=== PATIENT | male | born 1985 | race Caucasian/White ===

== ENCOUNTER 2016-11-23 12:25 | Emergency (ER) | payer BC ==
[~2016-11-23] VITALS: Ht 198.1 cm; Wt 147.0 kg
[2016-11-23 12:36] VITALS: TEMP 37.5; Ht 198.1 cm; Wt 147.0 kg
--- NOTE | 2016-11-23 13:05 | DIAGNOSTIC IMAGING REPORT ---
SINGLE VIEW CHEST CLINICAL HISTORY: Hemoptysis. FINDINGS: An AP, portable, upright chest radiograph is obtained. No prior studies are available for comparison at the time of dictation. The examination is degraded by portable technique and patient rotation. The cardiomediastinal silhouette is unremarkable. The lungs and pleural spaces are clear. No pneumothorax is seen. The bony thorax is grossly intact. IMPRESSION: No acute cardiopulmonary abnormality. Electronically signed by: Jonas Gonzalez M.D. 11/23/2016 1:04 PM Dictated Date/Time: 11/23/2016 1:03 PM
[2016-11-23] MEDS ORDERED: IBUP-1050 PO (13:10)
[2016-11-23] MEDS ORDERED: ACET-1311 PO (13:10)
--- NOTE | 2016-11-23 13:26 | EMERGENCY ROOM VISIT NOTE ---
History Report prepared by Scribe: Maday Orellana Under the Supervision of: Dr. Ted Burns D.O. First contact with patient: 12:38 Chief Complaint: COUGH Stated Complaint: COUGHING UP BLOOD Nursing Triage Summary: pt here with indigestion since thursday. pt states this am pt coughed this am and there was dark red blood in sputum. History of Present Illness The patient is a 31 year old male who presents to the Emergency Room with complaints of an episodic cough with bloody sputum this morning. The patient states that he has had some cold-like symptoms on and off over the past several weeks. This morning, he woke up with a slight cough and coughed up a large clot of bright red blood in his sputum. He subsequently noticed some pink tinges of blood in his sputum, but currently, his sputum does not contain any blood. He has not noticed any recent nose bleeds. He states that he has a history of GERD and is typically able to control it by monitoring what he eats; however, he had GERD symptoms 2 days ago into yesterday. Today, he called the [facility] nurse regarding his symptoms and was referred to the ER. Source of History: patient Onset: this morning Position: other (global) Quality: other (cough with bloody sputum) Timing: other (episodic) Review of Systems See HPI for pertinent positives & negatives. A total of 10 systems reviewed and were otherwise negative. Past Medical & Surgical Medical Problems: (1) Astigmatism (2) GERD (gastroesophageal reflux disease) Family History Diabetes mellitus Heart disease Hypertension Social History Smoking Status: Never Smoker Marital Status: Housing Status: lives with family Occupation Status: unemployed Current/Historical Medications Scheduled PRN Acetaminophen (Tylenol), 650 MG PO Q6 PRN for Headache or Pain Ibuprofen (Advil), 200-600 MG PO Q4H PRN for Headache or Pain Allergies Coded Allergies: Naproxen (Unverified Allergy, Unknown, GI UPSET , 11/23/16) Nickel (Verified Allergy, Unknown, RASH, 11/23/16) Physical Exam Vital Signs Date Time Temp Pulse Resp B/P Pulse Ox O2 Delivery O2 Flow Rate FiO2 11/23/16 13:33 84 16 143/91 96 11/23/16 12:36 37.5 98 16 135/96 98 Room Air Physical Exam CONSTITUTIONAL/VITAL SIGNS: Reviewed / noted above. GENERAL: Non-toxic in appearance. INTEGUMENTARY: Warm, dry, and [place]. HEAD: Normocephalic. EYES: without scleral icterus or trauma. ENT/OROPHARYNX: clear and moist. LYMPHADENOPATHY/NECK: Is supple without lymphadenopathy or meningismus. RESPIRATORY: Lungs clear and equal. CARDIOVASCULAR: Regular rate and rhythm. GI/ABDOMEN: Soft and nontender. No organomegaly or pulsatile mass. No rebound or guarding. Normal bowel sounds. EXTREMITIES: Warm and well perfused. BACK: No CVA tenderness. NEUROLOGICAL: Intact without focal deficits. PSYCHIATRIC: normal affect. MUSCULOSKELETAL: Normally developed with good muscle tone. Medical Decision & Procedures ER Provider Diagnostic Interpretation: Radiology results as stated below per my review and radiologist interpretation: SINGLE VIEW CHEST CLINICAL HISTORY: Hemoptysis. FINDINGS: An AP, portable, upright chest radiograph is obtained. No prior studies are available for comparison at the time of dictation. The examination is degraded by portable technique and patient rotation. The cardiomediastinal silhouette is unremarkable. The lungs and pleural spaces are clear. No pneumothorax is seen. The bony thorax is grossly intact. IMPRESSION: No acute cardiopulmonary abnormality. Electronically signed by: Jonas Gonzalez M.D. 11/23/2016 1:04 PM Dictated Date/Time: 11/23/2016 1:03 PM ED Course 1239: The patient was evaluated in room A9. A complete history and physical examination was performed. 1328: On reevaluation, the patient is resting comfortably. I discussed the results and findings with the patient. He verbalized agreement of the treatment plan. The patient was discharged home. Medical Decision the differential was considered includes acute myocardial infarction, acute coronary syndrome, myocarditis, pericarditis, pericardial effusions /tamponad, esophageal perforation, thoracic aortic dissection, pulmonary embolism, pneumonia, pneumothorax, pancreatitis, shingles, acute cholecystitis, perforated abdominal viscus. This is a 31-year-old male who presents to the ED with a chief complaint of a cough. The patient states this morning he awoke and coughed up a small amount of blood. He states that it cleared after short time. He has had a recent cold. He also reported a little bit of heartburn for the past couple of days. The patient denies any other significant symptoms. Denies any shortness of breath or chest pains at this time. Denies any swelling or pain in the legs. His exam was normal. Chest x-ray did not show acute disease. The patient's symptoms might be related to a bronchitis or possibly pharyngitis with a small broken blood vessel in or near the nasopharynx. The patient appears clinically stable for discharge. He will return for any worsening or new concerns. Impression Primary Impression: Cough Additional Impression: Hemoptysis, unspecified Scribe Attestation The scribe's documentation has been prepared under my direction and personally reviewed by me in its entirety. I confirm that the note above accurately reflects all work, treatment, procedures, and medical decision making performed by me. Departure Information Dispostion Home / Self-Care Referrals No Doctor, Assigned (PCP) Patient Instructions My [facility] Additional Instructions Follow-up with your doctor for further care and evaluation in 1-2 days if symptoms persist. Return to the emergency department for worsening or new symptoms or any concerns. You have been examined and treated today on an emergency basis only. This is not a substitute for, or an effort to provide, complete comprehensive medical care. It is impossible to recognize and treat all injuries or illnesses in a single emergency department visit. It is therefore important that you follow up closely with your doctor. Call as soon as possible for an appointment. Problem Qualifiers
[2016-11-23 13:33] VITALS: BP 143/91; PULSE 84; O2SAT 96
== END 2016-11-23 13:32 | disposition home or self-care (01) ==
LOC: C.EDB 12:26 → C.EDA 13:32
DX: R04.2 Hemoptysis (principal); R05 Cough; K21.9 Gastro-esophageal reflux disease without esophagitis

== ENCOUNTER 2020-01-12 23:28 | Inpatient (IN) ==
[2020-01-13] MEDS ORDERED: dilTIAZem HCl 5 MG/ML 5 ML VIAL IV STA ×2 (00:11→05:17)
[2020-01-13] MEDS ORDERED: SODIUM CHLORIDE 0.9% 1000ML 1,000 ML IV ONE (00:11)
[2020-01-13 00:16] LABS: Basophils # (auto) 0.06 K/uL (0-0.2); Basophils % (auto) 0.6 %; Eosinophils % (auto) 1.9 %; Hematocrit (blood only) 49.8 % (42-52); Immature Granulocytes # (auto) 0.02 K/uL (0.00-0.02); Immature Granulocytes % (auto) 0.2 %; Lymphocytes # (auto) 2.72 K/uL (1.2-3.4); Lymphocytes % (auto) 25.8 %; Mean Corpuscular Hgb Conc 36.1 g/dL (32-36); Mean Corpuscular Volume 88.5 fL (80-100); Monocytes # (auto) 0.92 K/uL (0.11-0.59); Monocytes % (auto) 8.7 %; Neutrophils # (auto) 6.63 K/uL (1.4-6.5); Neutrophils % (auto) 62.8 %; Platelet Count 245 K/uL (130-400); RDW Coefficient of Variation 12.9 % (11.5-14.5); RDW Standard Deviation 41.5 fL (36.4-46.3); Red Blood Count 5.63 M/uL (4.7-6.1); White Blood Count 10.55 K/uL (4.8-10.8)
[2020-01-13 00:27] LABS: Partial Thromboplastin Ratio 1.1; Prothrombin Time 10.9 Seconds (9.0-12.0)
[2020-01-13 01:06] LABS: Alanine Aminotransferase 41 U/L (12-78); Albumin Level 3.9 gm/dl (3.4-5.0); Aspartate Aminotransferase 26 U/L (15-37); BUN Creatinine Ratio 11.7 (10-20); Blood Urea Nitrogen 12 mg/dl (7-18); Calcium 9.6 mg/dl (8.5-10.1); Carbon Dioxide 29 mmol/L (21-32); Chloride 107 mmol/L (98-107); Creatinine Clr Calc Pharmacy 151.4 ml/min; Est GFR (African American) 106.8; Est GFR (Non-African American) 92.2; Glucose 112 mg/dl (70-99); Potassium 3.9 mmol/L (3.5-5.1); Sodium 143 mmol/L (136-145)
[2020-01-13 01:15] LABS: Albumin Globulin Ratio 1.1 (0.9-2); Alkaline Phosphatase 81 U/L (45-117); Bilirubin,Total 0.3 mg/dl (0.2-1); Globulin 3.7 gm/dl (2.5-4.0); Total Protein 7.6 gm/dl (6.4-8.2); Troponin I < 0.015 ng/ml (0-0.045)
--- NOTE | 2020-01-13 01:25 | Emergency Department Note ---
History of Present Illness General Chief complaint: Syncope Stated complaint: headaceh, light headed, passed out 2x, fell Time Seen by Provider: 01/12/20 23:39 Source: patient Mode of arrival: ambulatory Limitations: no limitations History of Present Illness Maximum Pain Intensity: 0 This patient is a 34-year-old male who presents to the emergency department for evaluation of 2 syncopal episodes occurring this evening. Patient states that he was in his car on his way home this afternoon when he began not feeling well. He developed some nausea and headache. He states that when he returned home, he had one episode of vomiting and 2 episodes of diarrhea. He reports that he then passed out. This was unwitnessed, but he states that he woke up on the floor and he did not remember getting there. He does report feeling lightheaded prior to this episode. He states that over the next 4 hours, he continued to feel somewhat nauseous and had a headache and was lightheaded anytime that he stood up. He states he was putting his kids to bed when he had another syncopal episode, this time witnessed by his . He lost consciousness for a few seconds. He states that at this time, he is feeling okay but continues to have some lightheadedness when he stands up and walks around. He has had no further episodes of vomiting or diarrhea. He denies any significant injuries associated with either syncopal episode. He denies any chest pain, shortness of breath or palpitations. He denies any cardiac history. 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 He otherwise denies any medical problems. He denies any alcohol use or drug use besides marijuana. Denies any pain at this time. 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 He does note that his works for the [employer] at [facility] and has continued to work. Home Medications Home Medications Medication Instructions Recorded Confirmed Type Iron Supplement Otc 1 tab PO DAILY 01/13/20 01/13/20 History cyanocobalamin (vitamin B-12) 0 mcg PO DAILY 01/13/20 01/13/20 History [Vitamin B-12] Allergies Allergy/AdvReac Type Severity Reaction Status Date / Time naproxen Allergy Unknown GI UPSET Unverified 01/13/20 02:10 nickel Allergy Unknown RASH Verified 01/13/20 02:10 Past Med/Surg History Medical History Acute angle-closure glaucoma Social History Preferred Language: Sri [place]an Communication Ability: Effective [employer] Installer Required: No Current Living Situation: Spouse Other Information That Helps Us Care for You: No Feels Safe at Home: Yes Safety Concerns: Feels Safe At This Time Smoking Status: Former smoker Hx Alcohol Use: No Hx Substance Use: Yes substance use type: marijuana Review of Systems A total of 10 systems reviewed and were otherwise negative Physical Exam Vital Signs Vital Signs - 24 hr 01/12/20 23:33 01/12/20 23:47 01/13/20 00:01 Temperature 36.7 C Temperature Source Oral Pulse Rate 83 162 H 147 H Pulse Rate [Apical] Pulse Rate from SpO2 Sensor 105 H 121 H Pulse Rhythm Pulse Rhythm [Apical] Respiratory Rate 20 13 23 Respiratory Effort / Characteristics Non-Labored Spontaneous Respiratory Depth Normal Blood Pressure 130/87 121/96 147/82 H Blood Pressure [Right Arm] Blood Pressure Mean 101 102 97 Blood Pressure Mean [Right Arm] Pulse Oximetry 98 97 97 Oxygen Delivery Method Room Air Room Air Room Air Sepsis Recent Fever Within 48 Hours No Sepsis New/Unexplained Change in Mental Status No Sepsis Action Taken by Nursing No Action Required 01/13/20 00:11 01/13/20 00:30 01/13/20 00:32 Temperature Temperature Source Pulse Rate 127 H 121 H Pulse Rate [Apical] 157 H Pulse Rate from SpO2 Sensor 94 H Pulse Rhythm Irregular Pulse Rhythm [Apical] Irregular Respiratory Rate 20 18 18 Respiratory Effort / Characteristics Non-Labored Spontaneous Respiratory Depth Normal Blood Pressure 119/93 Blood Pressure [Right Arm] 119/83 Blood Pressure Mean 98 Blood Pressure Mean [Right Arm] 95 Pulse Oximetry 96 91 98 Oxygen Delivery Method Room Air Room Air Room Air Sepsis Recent Fever Within 48 Hours Sepsis New/Unexplained Change in Mental Status Sepsis Action Taken by Nursing 01/13/20 01:00 01/13/20 01:14 01/13/20 01:15 Temperature Temperature Source Pulse Rate 149 H 124 H 110 H Pulse Rate [Apical] Pulse Rate from SpO2 Sensor 88 83 74 Pulse Rhythm Pulse Rhythm [Apical] Respiratory Rate 18 12 15 Respiratory Effort / Characteristics Respiratory Depth Blood Pressure 148/107 H 145/106 H 151/105 H Blood Pressure [Right Arm] Blood Pressure Mean 120 116 114 Blood Pressure Mean [Right Arm] Pulse Oximetry 99 99 98 Oxygen Delivery Method Room Air Room Air Room Air Sepsis Recent Fever Within 48 Hours Sepsis New/Unexplained Change in Mental Status Sepsis Action Taken by Nursing 01/13/20 01:17 01/13/20 01:19 01/13/20 01:20 Temperature Temperature Source Pulse Rate 88 115 H 97 H Pulse Rate [Apical] Pulse Rate from SpO2 Sensor 79 92 H Pulse Rhythm Pulse Rhythm [Apical] Respiratory Rate 19 15 16 Respiratory Effort / Characteristics Respiratory Depth Blood Pressure 115/96 130/104 H 151/90 H Blood Pressure [Right Arm] Blood Pressure Mean 101 119 128 Blood Pressure Mean [Right Arm] Pulse Oximetry 97 94 Oxygen Delivery Method Room Air Room Air Room Air Sepsis Recent Fever Within 48 Hours Sepsis New/Unexplained Change in Mental Status Sepsis Action Taken by Nursing 01/13/20 01:32 01/13/20 02:01 01/13/20 02:05 Temperature Temperature Source Pulse Rate 94 H 114 H Pulse Rate [Apical] 89 Pulse Rate from SpO2 Sensor 92 H 80 Pulse Rhythm Pulse Rhythm [Apical] Irregular Respiratory Rate 16 14 18 Respiratory Effort / Characteristics Respiratory Depth Normal Blood Pressure 145/93 H 166/86 H Blood Pressure [Right Arm] 164/83 H Blood Pressure Mean 100 116 Blood Pressure Mean [Right Arm] 110 Pulse Oximetry 99 95 98 Oxygen Delivery Method Room Air Room Air Room Air Sepsis Recent Fever Within 48 Hours Sepsis New/Unexplained Change in Mental Status Sepsis Action Taken by Nursing 01/13/20 02:30 Temperature Temperature Source Pulse Rate 147 H Pulse Rate [Apical] Pulse Rate from SpO2 Sensor 97 H Pulse Rhythm Pulse Rhythm [Apical] Respiratory Rate 17 Respiratory Effort / Characteristics Respiratory Depth Blood Pressure 157/130 H Blood Pressure [Right Arm] Blood Pressure Mean 134 Blood Pressure Mean [Right Arm] Pulse Oximetry 98 Oxygen Delivery Method Room Air Sepsis Recent Fever Within 48 Hours Sepsis New/Unexplained Change in Mental Status Sepsis Action Taken by Nursing VITALS: Vitals are noted on the nurse's note and reviewed by myself. GENERAL: This is a 34-year-old male, in no acute distress, nondiaphoretic, well- developed well-nourished. SKIN: The skin was without rashes, erythema, edema, or bruising. HEAD: Normocephalic atraumatic. EARS: External auditory canals clear, tympanic membranes pearly lay without erythema or effusion bilaterally. EYES: Pupils equal round and reactive to light and accommodation. No conjunctival injection. NOSE: Patent, turbinates without inflammation or discharge. MOUTH: Mucous membranes moist. Tonsils are not enlarged. Pharynx without erythema or exudate. NECK: Supple without nuchal rigidity. No lymphadenopathy. HEART: Tachycardic, irregularly irregular rhythm without murmurs gallops or rubs. LUNGS: Clear to auscultation bilaterally without wheezes, rales or rhonchi. No retractions or accessory muscle use. ABDOMEN: Positive bowel sounds x 4. Soft, nontender to palpation. MUSCULOSKELETAL: Full range of motion throughout. NEURO: Patient was alert and oriented to person place and time. No focal neurological deficits. Course Reevaluation(s) Reevaluation #1: Patient had some improvement of heart rate with some initial fluid bolus, but remained in atrial fibrillation at a rate of 120 bpm. 10 mg diltiazem was ordered. Reevaluation #2: Patient's heart rate has improved and is now from 90 to 100 bpm, however he remains in atrial fibrillation. Reevaluation #3: I spoke with the patient via telephone and discussed the findings with him. He is agreeable to admission for his new onset atrial fibril lation. Consultations [facility]ation #1: [facility] Administered Medications Sodium Chloride (Nss 1000ml) 1,000 mls @ 100 mls/hr IV .Q10H JAMIE Stop: 01/13/20 16:00 Last Admin: 01/13/20 04:36 Dose: 100 mls/hr Documented by: [id number] Diltiazem HCl 125 mg/ Dextrose 125 mls @ 5 mls/hr IV .Q24H JAMIE; Protocol Stop: 02/12/20 05:29 Last Admin: 01/13/20 05:30 Dose: 5 mg/hr, 5 mls/hr Documented by: [id number] Cosigned by: [id number] Discontinued Medications Calcium Carbonate (Tums) 500 mg PO NOW STA Stop: 01/13/20 04:51 Last Admin: 01/13/20 05:30 Dose: 500 mg Documented by: [id number] Diltiazem HCl (Cardizem) 10 mg IV NOW STA Stop: 01/13/20 00:12 Last Admin: 01/13/20 01:14 Dose: 10 mg Documented by: [id number] Cosigned by: [id number] Diltiazem HCl (Cardizem) 10 mg IV NOW STA Stop: 01/13/20 05:18 Last Admin: 01/13/20 05:30 Dose: 10 mg Documented by: [id number] Cosigned by: [id number] Sodium Chloride (Nss 1000ml) 1,000 mls @ 999 mls/hr IV .Q1H1M ONE Stop: 01/13/20 01:11 Last Infusion: 01/13/20 01:20 Dose: 0 mls/hr Documented by: [id number] Admin: 01/13/20 00:27 Dose: 999 mls/hr Documented by: [id number] Metoprolol Tartrate (Lopressor) Confirm Administered Dose 5 mg IV .STK-MED ONE Stop: 01/13/20 04:14 Last Increment: 01/13/20 04:30 Dose: 2.5 mg Documented by: [id number] Medical Decision Making Differential Diagnosis Differential diagnosis includes vasovagal event, dehydration, infection, hypoglycemia, electrolyte abnormalities, cardiac sources, intracerebral event, pulmonary embolism, seizure, toxicologic, neurologic, as well as other pathologies. Home Medications Current Medication List: was personally reviewed by me Laboratory Data Attestation: I reviewed the patient's lab results. Result diagrams: 01/12/20 23:45 01/12/20 23:45 Lab Results 01/12/20 01/12/20 01/12/20 Range/Units 23:45 23:45 23:45 WBC 10.55 (4.8-10.8) K/uL RBC 5.63 (4.7-6.1) M/uL Hgb 18.0 (14.0-18.0) g/dL Hct 49.8 (42-52) % MCV 88.5 (80-100) fL MCH 32.0 (25-34) pg MCHC 36.1 H (32-36) g/dL RDW Std Deviation 41.5 (36.4-46.3) fL RDW Coeff of Diana 12.9 (11.5-14.5) % Plt Count 245 (130-400) K/uL MPV 10.0 (7.4-10.4) fL Immature Gran % (Auto) 0.2 % Neut % (Auto) 62.8 % Lymph % (Auto) 25.8 % [place] % (Auto) 8.7 % Eos % (Auto) 1.9 % Baso % (Auto) 0.6 % Immature Gran # (Auto) 0.02 (0.00-0.02) K/uL Neut # (Auto) 6.63 H (1.4-6.5) K/uL Lymph # (Auto) 2.72 (1.2-3.4) K/uL [place] # (Auto) 0.92 H (0.11-0.59) K/uL Eos # (Auto) 0.20 (0-0.5) K/uL Baso # (Auto) 0.06 (0-0.2) K/uL PT 10.9 (9.0-12.0) Seconds INR 1.0 (0.9-1.1) APTT 30.0 (21.0-31.0) Seconds PTT Ratio 1.1 Sodium 143 (136-145) mmol/L Potassium 3.9 (3.5-5.1) mmol/L Chloride 107 (98-107) mmol/L Carbon Dioxide 29 (21-32) mmol/L Anion Gap 7.0 (3-11) BUN 12 (7-18) mg/dl Creatinine 1.05 (0.6-1.4) mg/dl Est Cr Clr Drug Dosing 151.4 ml/min Est GFR ( Amer) 106.8 Est GFR (Non-Af Amer) 92.2 BUN/Creatinine Ratio 11.7 (10-20) Glucose 112 H (70-99) mg/dl Calcium 9.6 (8.5-10.1) mg/dl Magnesium 2.0 (1.8-2.4) mg/dl Total Bilirubin 0.3 (0.2-1) mg/dl AST 26 (15-37) U/L ALT 41 (12-78) U/L Alkaline Phosphatase 81 (45-117) U/L Troponin I < 0.015 (0-0.045) ng/ml Total Protein 7.6 (6.4-8.2) gm/dl Albumin 3.9 (3.4-5.0) gm/dl Globulin 3.7 (2.5-4.0) gm/dl Albumin/Globulin Ratio 1.1 (0.9-2) TSH 2.150 (0.300-4.500) uIu/ml Specimen Hemolysis Imaging Data Attestation: I personally reviewed and interpreted this imaging study as follows: My Impression: CHEST 1 VIEW: No cardiomegaly, pulmonary infiltrates or failure. ECG Data Attestation: I personally reviewed and interpreted this ECG as follows: Indication: + syncope Rate (beats per minute): 153 Rhythm: + atrial fibrillation (Rapid ventricular response) ECG ST segments: + Normal ST segments Comparison ECG Date: no prior available Additional Comments: Repeat EKG shows atrial fibrillation with RVR at rate of 114 bpm. Blood Pressure Blood Pressure Findings: Normal blood pressure MDM Narrative Continuous supervisor: Order was placed for continuous supervisor. Patient was placed on the supervisor. Patient was noted to be in atrial fibrillation at an initial rate of 147 bpm. The patient was evaluated during the global COVID-19 pandemic, and that diagnosis was suspected/considered upon their initial presentation. Their evaluation, treatment and testing was consistent with current guidelines for patients who presented with complaints or symptoms that may be related to COVID- 19. The patient is a 34-year-old male who presents today complaining of 2 syncopal episodes occurring today. Patient had one episode of vomiting and a few episodes of diarrhea, but nothing persistent. He has had 2 syncopal episodes. He presents in atrial fibrillation with rapid ventricular response. Patient has no history of atrial fibrillation. He was given IV normal saline bolus with some improvement of his heart rate, then 10 mg diltiazem with further improvement. He remained in atrial fibrillation. Labs revealed no leukocytosis, anemia or concerning electrolyte abnormalities. Troponin was not elevated. TSH indicates a euthyroid state. While the patient does not have a classical presentation for COVID-19, he does have a new onset cardiac arrhythmia which has been described in some otherwise healthy patients. In addition, he has GI symptoms which have also been attributed to COVID in some patients. I did elect to send COVID-19 PCR testing for this reason. Patient will require ad mission for further evaluation of his new onset atrial fibrillation. Patient was agreeable with the plan of care. Case was discussed with the [facility] hospitalist, who agreed to evaluate the patient for further care. Impression & Plan Atrial fibrillation with rapid ventricular response, Syncope, Vomiting and diarrhea Discharge Plan Visit Data *Final* Discharge Date/Time: 01/13/20 03:43 Chief Complaint: Syncope Stated Complaint: headaceh, light headed, passed out 2x, fell ED Provider: Elda Joyce ED Midlevel Provider: Kari Hyman Discharge Problem: Atrial fibrillation with rapid ventricular response, Syncope, Vomiting and diarrhea Patient Disposition: Admitted As Inpatient Discharge Instructions Interventions: ED Discharge Assessment Last Done: 01/13/20 03:43 Discharge Problem: Syncope Qualifiers: Syncope type: unspecified Qualified Code(s): R55 - Syncope and collapse
[2020-01-13] MEDS ORDERED: METOPROLOL TARTRATE 1 MG/ML VIAL IV ONE (04:13)
[2020-01-13] MEDS ORDERED: ONDANSETRON INJ 2 MG/ML 2 ML VIAL IV PRN (04:29)
[2020-01-13] MEDS ORDERED: POLYETHYLENE (MIRALAX) 17 GM PACK PO PRN (04:29)
[2020-01-13] MEDS ORDERED: ACETAMINOPHEN 325 MG TAB PO PRN (04:29)
[2020-01-13] MEDS: SODIUM CHLORIDE 0.9% 1000ML 1,000 ML IV SCH ×2 (04:36→14:06)
[2020-01-13] MEDS ORDERED: CALCIUM CARBONATE 500 MG CHEWABLE TAB PO STA (04:50)
--- NOTE | 2020-01-13 05:09 | History and Physical Report ---
DATE OF ADMISSION: 01/13/2020 CHIEF COMPLAINT: Syncope. HISTORY OF PRESENT ILLNESS: This is a 34-year-old male with no significant past medical history, uses medical marijuana daily in the nighttime for his glaucoma, comes with syncopal episode. The patient says all day on 01/12/2020 he was feeling lightheaded. After eating lunch 2 hours later, he had an episode of vomiting, 1 episode, after which he suddenly fell down and for a brief moment he passed out. He did not close his eyes, but idnot remember falling down.After that he he laid down and he was still feeling lightheaded when he woke up and he was walking in his hallway. He again was feeling lightheaded and he held the wall and fell and hit back of the head on the door and passed out for a moment and came back to normal statusl. Because of these 2 episodes, he came to the ER and found to be in rapid AFib. The patient says he was feeling palpitations today at home on and off. Denies any chest pain, no shortness of breath. He has some cough with some phlegm, but thinks from his allergies. He denies any runny nose, no sore throat, no fever, no chills. He also had 1 episode of diarrhea today. No abdominal pain. Before this episode, he had severe headache but the headache is gone now. No blurred vision. No blood in the stools or black stools. Normal bladder movements. No rash, otherwise active. The patient denies any sick contacts, no travel outside. Because of his GI symptoms and because of his AFib ER wanted to rule out COVID and lab was ordered which is pending. ALLERGIES: NAPROXEN. PAST MEDICAL HISTORY: As mentioned above. PAST SURGICAL HISTORY: None. MEDICATIONS: The patient is on medical marijuana in the nighttime. FAMILY HISTORY: Significant for maternal grandmother has diabetes, eye problems. Maternal grandfather had heart disorder, in his 40s. Father has depression. Paternal grandmother has depression and eye problem. SOCIAL HISTORY: Lives with his family. Quit smoking in 2017. No alcohol use, medical marijuana in the nighttime. REVIEW OF SYMPTOMS: As per HPI. Rest of review of systems negative. PHYSICAL EXAMINATION: GENERAL: The patient is obese, not in acute distress. VITAL SIGNS: Temperature 36.7, pulse 89, respiratory rate 18, blood pressure 164/83, oxygen 98% on room air. HEENT: No pallor, no icterus. Pupils equal, round, and reactive to light. NECK: Supple. CARDIOVASCULAR: S1, S2 heard, regular rhythm. No murmurs. RESPIRATORY SYSTEM: Normal AP diameter. No accessory muscle use. No wheezing, no crackles. ABDOMEN: Soft, bowel sounds present, nontender. No distention. CENTRAL NERVOUS SYSTEM: Alert and oriented. Obeys commands. Moves extremities. EXTREMITIES: No edema, no erythema. LABORATORY DATA: WBC 10.5, hemoglobin 18, hematocrit 49.8, platelets 245. PT 10.9, INR 1, APTT 30. Sodium 143, potassium 3.9, chloride 107, bicarbonate 29, BUN 12, creatinine 1.05, serum glucose 112, calcium 9.6, magnesium 2, total bilirubin 0.3, AST 26, ALT 41, alkaline phosphatase 81. Troponin I less than 0.015. TSH 2.15. SARS-COVID pending. Chest x-ray, no acute findings. EKG: Atrial fibrillation with rapid ventricular response at rate of 158, no acute ST changes. ASSESSMENT AND PLAN: This 34-year-old male who presents with rapid atrial fibrillation and syncope. 1. Syncope, possibly secondary to rapid atrial fibrillation. Etiology unclear, risk factor obesity. Received a dose of IV Cardizem. We will place him on IV Lopressor 2.5 q. 4 hours p.r.n., full dose aspirin. Echocardiogram, serial cardiac enzymes. Closely monitor on tele floor. Further anticoagulation as per Cardiology in a.m. We will keep him n.p.o. until seen by Cardiology. Closely monitor. Restarted Cardizem drip as again went into rapid a fib. 2. Nausea and vomiting, probably could be from above or gastroenteritis but will await COVID test results. Contact and airborne precautions until COVID test is back. 3. Deep venous thrombosis prophylaxis scds DISPOSITION: Closely monitor in tele floor. Level 1 full code. MTDD
[2020-01-13] MEDS ORDERED: STAT IV Infusion **Titration per Protocol STA (05:17)
[2020-01-13] MEDS ORDERED: dilTIAZem HCL 125 MG in DEXTROSE 5% 100 ML IV SCH (05:30)
[2020-01-13 08:34] LABS: Basophils # (auto) 0.03 K/uL (0-0.2); Basophils % (auto) 0.3 %; Eosinophils % (auto) 2.2 %; Hematocrit (blood only) 47.6 % (42-52); Hemoglobin 16.7 g/dL (14.0-18.0); Immature Granulocytes # (auto) 0.02 K/uL (0.00-0.02); Immature Granulocytes % (auto) 0.2 %; Lymphocytes % (auto) 29.9 %; Mean Corpuscular Hemoglobin 31.4 pg (25-34); Mean Corpuscular Hgb Conc 35.1 g/dL (32-36); Mean Corpuscular Volume 89.5 fL (80-100); Mean Platelet Volume 10.1 fL (7.4-10.4); Monocytes # (auto) 0.67 K/uL (0.11-0.59); Monocytes % (auto) 7.4 %; Platelet Count 220 K/uL (130-400); RDW Standard Deviation 42.1 fL (36.4-46.3); Red Blood Count 5.32 M/uL (4.7-6.1); White Blood Count 9.02 K/uL (4.8-10.8)
--- NOTE | 2020-01-13 08:41 | XRay Report ---
XR chest 1V portable HISTORY: 34 years-old Male new onset afib acute atrial fibrillation COMPARISON: Chest radiograph 11/23/2016 TECHNIQUE: Portable AP view of the chest FINDINGS: Cardiomediastinal and hilar silhouettes are within normal limits. No pneumothorax, pleural effusion, airspace consolidation or overt pulmonary edema. Bones of the chest appear grossly intact. IMPRESSION: No acute process. ACT 112: Negative or not required by law. The above report was generated using voice recognition software. It may contain grammatical, syntax o r spelling errors. Electronically signed by: Sukhdev Coombs M.D. 01/13/2020 8:40 AM
[2020-01-13] MEDS ORDERED: ASPIRIN 325 MG ECTAB PO SCH (09:00)
[2020-01-13 09:03] LABS: BUN Creatinine Ratio 10.4 (10-20); Blood Urea Nitrogen 10 mg/dl (7-18); Calcium 9.2 mg/dl (8.5-10.1); Carbon Dioxide 29 mmol/L (21-32); Chloride 105 mmol/L (98-107); Est GFR (African American) 122.1; Est GFR (Non-African American) 105.4; Glucose 105 mg/dl (70-99); Magnesium 1.9 mg/dl (1.8-2.4); Potassium 4.1 mmol/L (3.5-5.1); Sodium 141 mmol/L (136-145)
[2020-01-13 09:08] LABS: Troponin I < 0.015 ng/ml (0-0.045)
--- NOTE | 2020-01-13 09:26 | Hospitalist Progress Note ---
Date of Service January 13, 2020 Assessment & Plan (1) Atrial fibrillation with rapid ventricular response: new diagnosis no prior hx of cardiac disease presented with rapid afib RVR leading to syncope and fall feeling of palpitation and lightheadedness for past few days started on IV Cardizem gtt , at present in rate controlled afib pt remains asymptomatic serial troponin , resting echo ordered Cardiology eval will defer anticoagulation per cardiology (2) Syncope: possible due to rapid afib RVR ? need to R/O PE ordered for dimer, will need CTA of chest if ddimer elevated no symptom of dizzy spell or light headedness at present monitor closely (3) Vomiting and diarrhea: symptoms has resolved ordered for diet COVID 19 test ordered -result pending cont standard isolation precaution till test result available FULL CODE DISPOSITION : expected to be discharged home when medically stable Admission and Anticipated Discharge Date Admission Date: January 13, 2020 Subjective pt reports of feeling well no cough or SOB , no chest pain does not have any complain of dizzy spell or lightheadedness no fever or chills no complain of abdominal pain , no nausea or loose stool remains in Afib with episodes of RVR -HR reported 180 with activity on iV cardizem gtt Review of Systems Review of Systems: All systems reviewed & are unremarkable except as noted in HPI & below Constitutional: no fever, no chills, no body aches, no fatigue, no malaise and no weakness Respiratory: no cough, no dyspnea, no dyspnea on exertion and no wheezing Cardiovascular: no chest pain, no dyspnea, no orthopnea, no palpitations, no lightheadedness, no syncope and no edema Gastrointestinal: no nausea, no vomiting and no diarrhea/loose stools Physical Exam Constitutional: WD/WN, vitals as above no acute distress Eyes: PERRL, conjunctivae normal, anicteric sclerae ENMT: external ear and nose normal, oropharynx normal Neck: trachea midline, no thyromegaly Respiratory: normal respiratory effort, lungs clear to auscultation Cardiovascular: Rate/Rhythm: + abnormal rhythm Extremities: normal capillary refill; no pedal edema and no edema Gastrointestinal (Abdomen): Percussion/Palpation: abdomen soft; abdomen nonte nder Musculoskeletal: no cyanosis or clubbing, extremities motor strength 5/5 Skin: no rashes, warm and dry Neurologic: PERRL, EOMI, accommodation nl, no face palsy, no dysarthria Psychiatric: A+Ox3, euthymic affect Results & Data Results & Data ([facility]) Vital Signs (Past 12 Hours) Vital Signs Temp Pulse Pulse Pulse Resp BP BP 01/13/20 07:51 36.8 C 110 H 19 116/80 01/13/20 04:30 119 H 124/80 01/13/20 04:14 36.7 C 77 16 135/89 01/13/20 03:43 125 H 18 113/73 01/13/20 03:30 121 H 17 133/76 01/13/20 03:00 139 H 25 H 124/107 H 01/13/20 02:30 147 H 17 157/130 H 01/13/20 02:05 89 18 164/83 H 01/13/20 02:01 114 H 14 166/86 H 01/13/20 01:32 94 H 16 145/93 H 01/13/20 01:20 97 H 16 151/90 H 01/13/20 01:19 115 H 15 130/104 H 01/13/20 01:17 88 19 115/96 01/13/20 01:15 110 H 15 151/105 H 01/13/20 01:14 124 H 12 145/106 H 01/13/20 01:00 149 H 18 148/107 H 01/13/20 00:32 157 H 18 119/83 01/13/20 00:30 121 H 18 119/93 01/13/20 00:11 127 H 20 01/13/20 00:01 147 H 23 147/82 H 01/12/20 23:47 162 H 13 121/96 01/12/20 23:33 36.7 C 83 20 130/87 Pulse Ox 01/13/20 07:51 98 01/13/20 04:30 01/13/20 04:14 97 01/13/20 03:43 98 01/13/20 03:30 100 01/13/20 03:00 98 01/13/20 02:30 98 01/13/20 02:05 98 01/13/20 02:01 95 01/13/20 01:32 99 01/13/20 01:20 01/13/20 01:19 94 01/13/20 01:17 97 01/13/20 01:15 98 01/13/20 01:14 99 01/13/20 01:00 99 01/13/20 00:32 98 01/13/20 00:30 91 01/13/20 00:11 96 01/13/20 00:01 97 01/12/20 23:47 97 01/12/20 23:33 98 Diagnostic Findings CHEST XRAY ; FINDINGS: Cardiomediastinal and hilar silhouettes are within normal limits. No pneumothorax, pleural effusion, airspace consolidation or overt pulmonary edema. Bones of the chest appear grossly intact. IMPRESSION: No acute process. Medications Administered Current Inpatient Medications Acetaminophen (Tylenol) 650 mg PO Q4H PRN PRN Reason: Pain or Fever Stop: 02/12/20 04:28 Aspirin (Ecotrin) 325 mg PO [facility] Stop: 02/12/20 08:59 Last Admin: 01/13/20 08:45 Dose: 325 mg Documented by: Sodium Chloride (Nss 1000ml) 1,000 mls @ 100 mls/hr IV .Q10H [facility] Stop: 01/13/20 16:00 Last Admin: 01/13/20 04:36 Dose: 100 mls/hr Documented by: Diltiazem HCl 125 mg/ Dextrose 125 mls @ 5 mls/hr IV .Q24H [facility]; Protocol Stop: 02/12/20 05:29 Last Admin: 01/13/20 05:30 Dose: 5 mg/hr, 5 mls/hr Documented by: Metoprolol Tartrate (Lopressor) 2.5 mg IV Q4 PRN PRN Reason: Tachycardia Stop: 02/12/20 04:28 Ondansetron HCl (Zofran) 4 mg IV Q6H PRN PRN Reason: Nausea Stop: 02/12/20 04:28 Polyethylene Glycol (Miralax Powder Packet) 17 gm PO DAILY PRN PRN Reason: Constipation Stop: 02/12/20 04:28 (1) Syncope Syncope type: unspecified Qualified Code(s): R55 - Syncope and collapse
[2020-01-13 10:58] LABS: D Dimer 370 ug/L FEU (0-500)
[2020-01-13] MEDS ORDERED: METOPROLOL TARTRATE 25 MG TAB PO SCH (13:00)
[2020-01-13] MEDS: METOPROLOL TARTRATE 25 MG TAB PO SCH ×2 (13:14→20:27)
[2020-01-13] MEDS ORDERED: MAGNESIUM SULFATE / D5W 1 GM/100 ML BAG IV ONE (13:45)
--- NOTE | 2020-01-13 13:47 | Cardiology Consultation ---
Date of Consultation January 13, 2020 Assessment & Plan (1) Atrial fibrillation with rapid ventricular response: (2) Syncope: (3) Vomiting and diarrhea: (4) Hypomagnesemia: 34-year-old patient presents with paroxysmal atrial fibrillation. [id number] =0. Heart rate improved with IV diltiazem infusion. Recommend oral metoprolol 25 mg twice daily. I have ordered 1 dose to be given now. Discussed with nursing staff. Wean diltiazem drip as tolerated. Anticoagulation will be considered if cardioversion is necessary during hospitalization, however, recommend CT of the head prior to initiation of anticoagulation due to syncope. Recommend maintain serum potassium greater than 4.0, and magnesium greater than 2.0. 1gm magnesium sulfate rider ordered. Resting 2D transthoracic echocardiogram will be performed when COVID status is resulted. D-dimer is negative therefore potential thrombus, DVT, and PE unlikely. Patient's possible syncopal/near syncopal episode I suspect is related to vagal etiology in the setting of nausea, vomiting, and volume depletion. Continue telemetry monitoring. History of Present Illness Reason for Consultation: Paroxysmal atrial fibrillation Requesting Physician: Dr. Arguello Attending Physician: Flaca Arguello MD History of Present Illness 34-year-old patient presented to the emergency department with syncope. Reports significant abdominal discomfort, nausea, vomiting, and diarrhea in the hours preceding presentation. Patient had gone to the bathroom and vomited. He then became acutely lightheaded. He woke up on the ground. No injuries noted. Denies prior history of syncope. Denies any palpitations currently. States he notes occasional fluttering in his chest over the past months to years. Typically aware of his heart rate in the evenings. Denies chest discomfort or shortness of breath. No prior history of atrial fibrillation. Denies personal history of diabetes, hypertension, rheumatic fever as a child, or cardiac issues. Denies alcohol or excessive caffeine intake. Admits to marijuana use in the evening. Due to gastrointestinal symptoms and new onset atrial fibrillation a COVID test is pending at this time. Allergies Allergy/AdvReac Type Severity Reaction Status Date / Time naproxen Allergy Unknown GI UPSET Unverified 01/13/20 02:10 nickel Allergy Unknown RASH Verified 01/13/20 02:10 Home Medications Home Medications Medication Instructions Recorded Confirmed Type Iron Supplement Otc 1 tab PO DAILY 01/13/20 01/13/20 History cyanocobalamin (vitamin B-12) 0 mcg PO DAILY 01/13/20 01/13/20 History [Vitamin B-12] Patient History Medical History Acute angle-closure glaucoma Social History Preferred Language: Moroccan Communication Ability: Effective Outside Salesman Required: No Current Living Situation: Spouse Other Information That Helps Us Care for You: No Feels Safe at Home: Yes Safety Concerns: Feels Safe At This Time Smoking Status: Former smoker Hx Alcohol Use: No Hx Substance Use: Yes substance use type: marijuana Review of Systems Review of Systems: All systems reviewed & are unremarkable except as noted in HPI & below Physical Exam Physical Exam: Complete physical exam was not performed due to potential COVID infection. Constitutional: well developed and + obese; no acute distress and not ill appearing Eyes: no scleral abnormality Respiratory: normal respiratory effort; no respiratory distress, no labored breathing, no retractions and does not use accessory muscles Cardiovascular: Vessels: no JVD Musculoskeletal: Head/Neck/Chest: normocephalic and head atraumatic Extremities: extremities normal to inspection; normal muscle tone and no muscle atrophy Skin: no rashes and no ulcers Trauma: no contusion Neurologic: moves all extremities; no focal motor deficits Speech / Cognition: normal speech Motor/Sensory: no tremor Psychiatric: Mood: + anxious mood Insight: good insight Results & Data ([place]) Vital Signs (Past 12 Hours) Vital Signs Temp Pulse Pulse Pulse Resp BP BP 01/13/20 11:40 36.8 C 76 16 113/71 01/13/20 07:51 36.8 C 110 H 19 116/80 01/13/20 04:30 119 H 124/80 01/13/20 04:14 36.7 C 77 16 135/89 01/13/20 03:43 125 H 18 113/73 01/13/20 03:30 121 H 17 133/76 01/13/20 03:00 139 H 25 H 124/107 H 01/13/20 02:30 147 H 17 157/130 H 01/13/20 02:05 89 18 164/83 H 01/13/20 02:01 114 H 14 166/86 H Pulse Ox 01/13/20 11:40 96 01/13/20 07:51 98 01/13/20 04:30 01/13/20 04:14 97 01/13/20 03:43 98 01/13/20 03:30 100 01/13/20 03:00 98 01/13/20 02:30 98 01/13/20 02:05 98 01/13/20 02:01 95 (1) Syncope Syncope type: unspecified Qualified Code(s): R55 - Syncope and collapse
--- NOTE | 2020-01-13 15:05 | Electrocardiogram Report ---
Test Reason : Blood Pressure : / mmHG Vent. Rate : 153 BPM Atrial Rate : 131 BPM P-R Int : 000 ms QRS Dur : 096 ms QT Int : 304 ms P-R-T Axes : 000 068 067 degrees QTc Int : 485 ms Atrial fibrillation with rapid ventricular response Abnormal ECG No previous ECGs available Confirmed by Ernesto Chamberlain ([id number]) on 01/13/2020 3:05:22 PM Referred By: REFERRED SELF Confirmed By:Ernesto Chamberlain
--- NOTE | 2020-01-13 15:09 | Electrocardiogram Report ---
Test Reason : Blood Pressure : / mmHG Vent. Rate : 114 BPM Atrial Rate : 101 BPM P-R Int : 000 ms QRS Dur : 104 ms QT Int : 322 ms P-R-T Axes : 000 056 045 degrees QTc Int : 443 ms Atrial fibrillation with rapid ventricular response Abnormal ECG When compared with ECG of 12-JAN-2020 23:44, (unconfirmed) No significant change was found Confirmed by Ernesto Chamberlain ([id number]) on 01/13/2020 3:08:59 PM Referred By: REFERRED SELF Confirmed By:Ernesto Chamberlain
--- NOTE | 2020-01-13 15:27 | Hospitalist Progress Note ---
Date of Service January 13, 2020 Assessment & Plan Admission and Anticipated Discharge Date Admission Date: January 13, 2020 Subjective ATTENDING NOTE: COVID -19 PCR negative contact precaution /isolation D/colleen Flaca Arguello MD Results & Data Results & Data ([facility]) Vital Signs (Past 12 Hours) Vital Signs Temp Pulse Pulse Pulse Resp BP BP 01/13/20 11:40 36.8 C 76 16 113/71 01/13/20 07:51 36.8 C 110 H 19 116/80 01/13/20 04:30 119 H 124/80 01/13/20 04:14 36.7 C 77 16 135/89 01/13/20 03:43 125 H 18 113/73 01/13/20 03:30 121 H 17 133/76 Pulse Ox 01/13/20 11:40 96 01/13/20 07:51 98 01/13/20 04:30 01/13/20 04:14 97 01/13/20 03:43 98 01/13/20 03:30 100
--- NOTE | 2020-01-13 16:10 | Hospitalist Progress Note ---
Date of Service January 13, 2020 Assessment & Plan Admission and Anticipated Discharge Date Admission Date: January 13, 2020 Subjective pt remains in Afib discussed with Cardiology may need cardioversion -which will require anticoagulation prior to the procedure to prevent cardiac thromboembolic event causing stroke admitted with syncope /fall , hitting head ordered for CT head non contrast to r/o any intracranial Hge prior to order anticoagulation Flaca Arguello MD Results & Data Results & Data ([facility]) Vital Signs (Past 12 Hours) Vital Signs Temp Pulse Pulse Pulse Resp BP BP 01/13/20 15:53 36.8 C 75 18 123/81 01/13/20 11:40 36.8 C 76 16 113/71 01/13/20 07:51 36.8 C 110 H 19 116/80 01/13/20 04:30 119 H 124/80 01/13/20 04:14 36.7 C 77 16 135/89 Pulse Ox 01/13/20 15:53 97 01/13/20 11:40 96 01/13/20 07:51 98 01/13/20 04:30 01/13/20 04:14 97
--- NOTE | 2020-01-13 17:06 | CT Scan Report ---
CT OF THE HEAD WITHOUT CONTRAST CLINICAL HISTORY: Recent fall with head trauma. Evaluate for bleed. COMPARISON STUDY: Head CT February 28, 2013. CT DOSE: 788.63 mGycm TECHNIQUE: Helical axial images of the head were obtained without IV contrast. Automated exposure con trol was utilized for the study. A dose lowering technique was utilized adhering to the principles o f ALARA. FINDINGS: No acute intracranial hemorrhage, midline shift or mass effect is present. The ventricular system is unremarkable. The basilar cisterns are patent. No extra-axial collections are present. Ther e are no findings to suggest acute dural sinus thrombosis or acute territorial infarct. No significan t calvarial abnormalities are present. Visualized portions of the sinuses and mastoid air cells are c lear. IMPRESSION: 1. No acute intracranial findings. 2. No calvarial fracture. ACT 112: Negative or not required by law. Electronically signed by: Pritesh Victor M.D. 01/13/2020 5:04 PM
[2020-01-13] MEDS: METOPROLOL TARTRATE 1 MG/ML VIAL IV PRN (21:41)
[2020-01-14] MEDS: METOPROLOL TARTRATE 1 MG/ML VIAL IV PRN (06:02)
[2020-01-14] MEDS: METOPROLOL TARTRATE 25 MG TAB PO SCH (07:51)
[2020-01-14] MEDS ORDERED: ASPIRIN 325 MG ECTAB PO SCH (08:00)
[2020-01-14] MEDS ORDERED: dilTIAZem HCL 125 MG in DEXTROSE 5% 100 ML IV ONE (08:43)
[2020-01-14] MEDS ORDERED: LORazepam 0.5 MG TAB PO STA (08:52)
--- NOTE | 2020-01-14 08:54 | Hospitalist Progress Note ---
Date of Service January 14, 2020 Assessment & Plan (1) Atrial fibrillation with rapid ventricular response: new diagnosis no prior hx of cardiac disease presented with rapid afib RVR leading to syncope and fall cardiology consulted , appreciate input pt was started on IV Cardizem gtt /added PO Lopressor 25 mg BID no evidence of ACS , serial troponin negative resting ECHO : no wall motion abnormality , normal EF ordered for TSH level to be checked pt reports yesterday as his heart rate was lower , he felt much better he has been feeling dizzy /lightheaded , mild ROMEO and lack of energy for years realized the difference in symptoms while his HR was controlled for few hours with IV cardizem and lopressor . IV Cardizem weaned off last evening , as HR was with in goal developed rapid afib RVR with HR variable between 140-170 's /associated with symptoms pt reports of feeling rapid heart beat /palpitation felt dizzy and lightheaded while going to bathroom no pre syncope or syncope D.w collection systems worker cardiology Lopressor dose will be increased to 50 mg TID will be started on DOAC's for anticoagulation given unknown duration of Afib plan to be discharged home when HR is controlled below 100 will need out patient follow up with cardiology for further management of Afib plan of care discussed in detail and at length with pt at bedside , and Pt's Collette Hussein # [phone] over phone answered all questions updated all questions regarding treatment plan should be directed to me or the Legal Summer Intern collection systems worker to prevent confusion pt and voiced understanding , and comfortable with treatment plan (2) Syncope: possible due to rapid afib RVR pt reports of feeling dizzy and lightheaded while in rapid afib rvr ddimer negative /wnl , PE/thromboembolic event less likely Anxiety disorder: pt appears to be extremely anxious says he is having panic attack which may getting his HR fast at home he uses Marijuana for anxiety ordered for PO ativan 0.5 mg counselling provided to see out pt Psychiatry and therapy help to treat Anxiety disorder (3) Vomiting and diarrhea: no further symptoms COVID 19 test negative ' pt does not have any s/s suggestive of vial illness isolation precaution d/colleen FULL CODE DISPOSITION : expected to be discharged in next 24 -48 hrs as HR is controlled Admission and Anticipated Discharge Date Admission Date: January 13, 2020 Subjective pt is very anxious worried about his treatment plan , and when he can be discharged home frustrated that he is getting mixed messages from the nursing stuff reports of feeling rapid HR /palpitation and occasional dizzy spell no hypoxia , or SOB , remains in room air sp02 98 % no cough , no fever or chills BP stable at 147/97 Review of Systems Review of Systems: All systems reviewed & are unremarkable except as noted in HPI & below Constitutional: + problem reported very anxious Eyes: as per Subjective / HPI Respiratory: no cough, no dyspnea, no dyspnea on exertion and no wheezing Cardiovascular: + dyspnea, + dyspnea on exertion, + palpitations and + lightheadedness; no chest pain, no dyspnea at rest, no orthopnea, no syncope and no edema Physical Exam Constitutional: WD/WN, vitals as above no acute distress Eyes: PERRL, conjunctivae normal, anicteric sclerae ENMT: external ear and nose normal, oropharynx normal Neck: trachea midline, no thyromegaly Respiratory: normal respiratory effort, lungs clear to auscultation no cough Auscultation: lungs clear to auscultation bilaterally Cardiovascular: Rate/Rhythm: regular rhythm, + tachycardic and + irregularly irregular Vessels: no JVD Extremities: normal capillary refill; no pedal edema and no edema reports of occasional dizzy spell and ROMEO Gastrointestinal (Abdomen): Percussion/Palpation: abdomen soft; abdomen nontender Musculoskeletal: no cyanosis or clubbing, extremities motor strength 5/5 Skin: no rashes, warm and dry Neurologic: PERRL, EOMI, accommodation nl, no face palsy, no dysarthria Psychiatric: Orientation: alert and oriented x 3 Affect: + anxious affect Results & Data Results & Data ([facility]) Vital Signs (Past 12 Hours) Vital Signs Temp Pulse Pulse Resp BP Pulse Ox 01/14/20 08:00 128 H 01/14/20 07:04 36.8 C 93 H 18 147/97 H 98 01/14/20 06:02 128 H 01/14/20 03:52 36.4 C L 98 H 16 129/86 99 01/14/20 00:15 37.2 C 95 H 16 136/80 99 01/13/20 23:37 99 H 01/13/20 21:40 122 H 131/78 (1) Syncope Syncope type: unspecified Qualified Code(s): R55 - Syncope and collapse
[2020-01-14] MEDS ORDERED: Nursing to Pharmacy Communication ONE (08:56)
[2020-01-14] MEDS ORDERED: dilTIAZem HCl 5 MG/ML 5 ML VIAL IV STA (09:00)
[2020-01-14] MEDS ORDERED: METOPROLOL TARTRATE 25 MG TAB PO STA (09:04)
[2020-01-14 09:13] LABS: INR 1.1 (0.9-1.1); Prothrombin Time 11.2 Seconds (9.0-12.0)
[2020-01-14 09:21] LABS: BUN Creatinine Ratio 7.7 (10-20); Calcium 9.5 mg/dl (8.5-10.1); Creatinine Clr Calc Pharmacy 124.2 ml/min; Est GFR (African American) 85.7; Est GFR (Non-African American) 73.9; Magnesium 2.3 mg/dl (1.8-2.4); Potassium 3.9 mmol/L (3.5-5.1)
[2020-01-14 09:31] LABS: Thyroid Stimulating Hormone 1.6 uIu/ml (0.300-4.500)
[2020-01-14] MEDS: APIXABAN 5 MG TABLET PO SCH ×2 (10:35→21:09)
--- NOTE | 2020-01-14 12:21 | Cardiology Progress Note ---
Date of Service January 14, 2020 Assessment & Plan (1) Atrial fibrillation with rapid ventricular response: Heart rate still elevated. Discussed management in detail with patient. Atrial fibrillation does not appear to be recent in onset but poorly controlled as far as rate. Suspect this led to symptoms. We will increase metoprolol for rate control. Would recommend adding anticoagulation with DOAC with ultimate plans return to sinus rhythm in the next 3 to 4 weeks after period of anticoagulation. Patient aware of above plan Follow-up with primary care physician and cardiology 1 to 2 weeks time (2) Syncope: (3) Vomiting and diarrhea: (4) Hypomagnesemia: Subjective Patient seen and examined, chart, medications, telemetry reviewed. Patient concern regarding persistent elevation in heart rate and blood pressures. No dizziness or lightheadedness no syncope or near syncope no neurologic complaints. Patient notes of irregular heart rhythm dating multiple days or months, not recent onset Physical Exam Constitutional: WD/WN, vitals as above Eyes: PERRL, conjunctivae normal, anicteric sclerae ENMT: external ear and nose normal, oropharynx normal Neck: trachea midline, no thyromegaly Heavily bearded Respiratory: normal respiratory effort, lungs clear to auscultation Cardiovascular: Rate/Rhythm: + tachycardic and + irregularly irregular Heart Sounds: normal S1 and normal S2; no gallop and no murmur Palpation: normal PMI Vessels: normal carotid upstroke and radial pulses present; no JVD and no carotid bruit Extremities: no edema Chest (Breasts): Chest: normal inspection of chest Gastrointestinal (Abdomen): normal bowel sounds, soft, nontender, no hepatosplenomegaly Musculoskeletal: no cyanosis or clubbing, extremities motor strength 5/5 Skin: no rashes, warm and dry Neurologic: PERRL, EOMI, accommodation nl, no face palsy, no dysarthria Psychiatric: A+Ox3, euthymic affect Results & Data Vital Signs (Past 12 Hours) Vital Signs Temp Pulse Pulse Resp BP Pulse Ox 01/14/20 08:00 128 H 01/14/20 07:04 36.8 C 93 H 18 147/97 H 98 01/14/20 06:02 128 H 01/14/20 03:52 36.4 C L 98 H 16 129/86 99 Laboratory Results Laboratory Results - last 24 hr 01/13/20 01/13/20 01/13/20 00:18 00:31 14:37 PT INR Sodium Potassium Chloride Carbon Dioxide Anion Gap BUN Creatinine Est Cr Clr Drug Dosing Est GFR ( Amer) Est GFR (Non-Af Amer) BUN/Creatinine Ratio Glucose Calcium Magnesium Troponin I < 0.015 TSH COVID-19 PCR NEGATIVE SARS-CoV-2 RNA (RT-PCR) Cancelled 01/14/20 01/14/20 08:55 08:55 PT 11.2 INR 1.1 Sodium 137 Potassium 3.9 Chloride 102 Carbon Dioxide 28 Anion Gap 7.0 BUN 10 Creatinine 1.26 D Est Cr Clr Drug Dosing 124.2 Est GFR ( Amer) 85.7 Est GFR (Non-Af Amer) 73.9 BUN/Creatinine Ratio 7.7 L Glucose 129 H Calcium 9.5 Magnesium 2.3 Troponin I TSH 1.600 COVID-19 PCR SARS-CoV-2 RNA (RT-PCR) (1) Syncope Syncope type: unspecified Qualified Code(s): R55 - Syncope and collapse
[2020-01-14] MEDS ORDERED: METOPROLOL TARTRATE 50 MG TAB PO SCH (14:00)
[2020-01-14] MEDS: LORazepam 0.5 MG TAB PO PRN (16:52)
[2020-01-14] MEDS ORDERED: METOPROLOL SUCC 50MG EXT REL TAB PO STA (18:06)
[2020-01-15] MEDS: LORazepam 0.5 MG TAB PO PRN (07:28)
[2020-01-15] MEDS: APIXABAN 5 MG TABLET PO SCH (07:28)
--- NOTE | 2020-01-15 08:05 | Hospitalist Progress Note ---
Date of Service January 15, 2020 Assessment & Plan Admission and Anticipated Discharge Date Admission Date: January 13, 2020 Subjective ATTENDING NOTE : pt had an uneventful night telemonitor reviewed , remains in Afib RVR with HR variable between 110-120's 7: 14 am vitals shows : HR 64 , afib BP 155/72 pt started on Toprol xl 100 mg PO BID since yesterday evening anticoagulation with PO eliquis 5 mg BID for unknown duration of Afib pt will be discharged today morning with above medication regimen cardiology follow up in 3-4 weeks Hospital follow up scheduled with Deborah Davis PA-C tomorrow on Thursday01/16/2020 @ 10: [address] [facility] Flaca Arguello MD Results & Data Results & Data ([facility]) Vital Signs (Past 12 Hours) Vital Signs Temp Pulse Resp BP BP Pulse Ox 01/15/20 07:14 36.4 C L 64 19 155/72 H 98 01/15/20 07:04 36.9 C 62 20 119/84 98 01/15/20 04:09 36.9 C 110 H 20 129/93 97 01/14/20 23:03 36.8 C 108 H 18 136/94 99
--- NOTE | 2020-01-15 08:53 | Electrocardiogram Report ---
Test Reason : Blood Pressure : / mmHG Vent. Rate : 092 BPM Atrial Rate : 267 BPM P-R Int : 000 ms QRS Dur : 108 ms QT Int : 340 ms P-R-T Axes : 000 085 033 degrees QTc Int : 420 ms Atrial fibrillation Abnormal ECG When compared with ECG of 13-JAN-2020 00:52, No significant change was found Confirmed by Lior Mendez ([id number]) on 01/15/2020 8:53:35 AM Referred By: REFERRED SELF Confirmed By:Lior Mendez
[2020-01-15] MEDS ORDERED: METOPROLOL SUCC 50MG EXT REL TAB PO SCH (09:00)
--- NOTE | 2020-01-15 09:55 | Electrocardiogram Report ---
Test Reason : Blood Pressure : / mmHG Vent. Rate : 137 BPM Atrial Rate : 129 BPM P-R Int : 000 ms QRS Dur : 100 ms QT Int : 312 ms P-R-T Axes : 000 055 066 degrees QTc Int : 471 ms Atrial fibrillation with rapid ventricular response Abnormal ECG When compared with ECG of 14-JAN-2020 06:41, (unconfirmed) Vent. rate has increased BY 45 BPM Confirmed by Lior Mendez ([id number]) on 01/15/2020 9:55:23 AM Referred By: REFERRED SELF Confirmed By:Lior Mendez
--- NOTE | 2020-01-15 11:26 | Discharge Summary ---
Date of Service January 15, 2020 Admission HPI Per Admitting Provider DATE OF ADMISSION: 01/13/2020 CHIEF COMPLAINT: Syncope. HISTORY OF PRESENT ILLNESS: This is a 34-year-old male with no significant past medical history, uses medical marijuana daily in the nighttime for his glaucoma, comes with syncopal episode. The patient says all day on 01/12/2020 he was feeling lightheaded. After eating lunch 2 hours later, he had an episode of vomiting, 1 episode, after which he suddenly fell down and for a brief moment he passed out. He did not close his eyes, but idnot remember falling down.After that he he laid down and he was still feeling lightheaded when he woke up and he was walking in his hallway. He again was feeling lightheaded and he held the wall and fell and hit back of the head on the door and passed out for a moment and came back to normal statusl. Because of these 2 episodes, he came to the ER and found to be in rapid AFib. The patient says he was feeling palpitations today at home on and off. Denies any chest pain, no shortness of breath. He has some cough with some phlegm, but thinks from his allergies. He denies any runny nose, no sore throat, no fever, no chills. He also had 1 episode of diarrhea today. No abdominal pain. Before this episode, he had severe headache but the headache is gone now. No blurred vision. No blood in the stools or black stools. Normal bladder movements. No rash, otherwise active. The patient denies any sick contacts, no travel outside. Because of his GI symptoms and because of his AFib ER wanted to rule out COVID and lab was ordered which is pending. Principal Diagnosis ATRIAL FIBRILLATION WITH RAPID VENTRICULAR RATE -NEW DIAGNOSIS Discharge Exam Constitutional WD/WN, vitals as above no acute distress Eyes PERRL, conjunctivae normal, anicteric sclerae ENMT external ear and nose normal, oropharynx normal Neck trachea midline, no thyromegaly Respiratory normal respiratory effort, lungs clear to auscultation no cough Auscultation: lungs clear to auscultation bilaterally Cardiovascular Rate/Rhythm: + irregularly irregular Vessels: no JVD Extremities: normal capillary refill; no pedal edema and no edema Gastrointestinal (Abdomen) Percussion/Palpation: abdomen soft; abdomen nontender Musculoskeletal no cyanosis or clubbing, extremities motor strength 5/5 Skin no rashes, warm and dry Neurologic PERRL, EOMI, accommodation nl, no face palsy, no dysarthria Psychiatric A+Ox3, euthymic affect Orientation: alert and oriented x 3 Discharge Data Allergies Allergy/AdvReac Type Severity Reaction Status Date / Time naproxen Allergy Unknown GI UPSET Unverified 01/13/20 02:10 nickel Allergy Unknown RASH Verified 01/13/20 02:10 Consultations 01/13/20 01:54 ED Decision to Admit Stat 01/13/20 08:00 Consult Cardiology Routine Ordered Studies 01/13/20 16:11 CT head/brain wo con Routine Hospital Course (1) Atrial fibrillation with rapid ventricular response: new diagnosis no prior hx of cardiac disease presented with rapid afib RVR leading to syncope and fall cardiology consulted , appreciate input pt was started on IV Cardizem gtt /added PO Lopressor 25 mg BID ( hr remains uncontrolled ) IV cardizem d/colleen beta eden changed to Toprol Xl 100 mg BID pt had an uneventful night telemonitor reviewed , remains in Afib RVR with HR variable between 110-120's 7: 14 am vitals shows : HR 64 , afib BP 155/72 anticoagulation with PO eliquis 5 mg BID for unknown duration of Afib pt will be discharged today morning with above medication regimen cardiology follow up in 3-4 weeks Hospital follow up scheduled with Deborah Davis PA-C tomorrow on Thursday01/16/2020 @ 10: 05 am at [facility] no evidence of ACS , serial troponin negative resting ECHO : no wall motion abnormality , normal EF normal TSH level (2) Syncope: possible due to rapid afib RVR pt reports of feeling dizzy and lightheaded while in rapid afib rvr ddimer negative /wnl , PE/thromboembolic event less likely Anxiety disorder: pt appears to be extremely anxious says he is having panic attack which may getting his HR fast at home he uses Marijuana for anxiety ordered for PO ativan 0.5 mg PRN while in hospital counselling provided to see out pt Psychiatry and therapy help to treat Anxiety disorder (3) Vomiting and diarrhea: no further symptoms COVID 19 test negative ' pt does not have any s/s suggestive of vial illness isolation precaution d/colleen FULL CODE DISPOSITION : pt is discharged home today Total Time Total Time Spent Total Time Spent (In Minutes): aprrox 35 mi ns Total Time Includes: Discharge Planning, Medication Reconciliation and Communication With Other Providers Discharge Plan Discharge Items Patient Disposition: Home - Self-Care Reason For Visit: SYNCOPE, RAPID AFIB Discharge Diagnosis: ATRIAL FIBRILLATION /IRREGULAR HEARTBEAT Activity: Resume your previous activity Non-emergency contact: Primary Care Provider Call non-emergency contact if: you have any medication questions Follow-up/Referrals: Idris Munoz MD [Physician] - (Cardiology follow up with Dr Idris Munoz in 3-4 weeks ) Santy Jackson MD [Primary Care Provider] - 01/16/20 10:05 am (Hospital follow up scheduled with Deborah Davis PA-C on 01/16/2020 @ 10: 05 am at [facility] Dr Jackson's schedule is full ) Diet: Heart Healthy Addtl Attending Provider Instructions: Hospital follow up scheduled with Deborah Davis PA-C on 01/16/2020 @ 10: 05 am at [facility] FOLLOW UP WITH CARDIOLOGY IN CLINIC IN 3-4 WEEKS , YOU ARE STARTED on a blood thinner: Eliquis /apixaban: 5 mg 1 tablet twice daily-prevent risk of stroke caused by atrial fibrillation/irregular heart rate Prescription is already sent to your pharmacy [facility] Eliquis increases your risk for bleeding Do not take aspirin, Advil, Motrin, ibuprofen, Aleve, xzupiufi-fjbu-plp-counter pain medication-combination of these xlgz-aod-vaholtc pain medication and Eliquis will significantly increase bleeding risk/especially bleeding from stomach ulcer Notify your family physician if you notice any dark or tarry colored stool(usual sign of bleeding and stomach) For pain medication okay to take Tylenol as needed. Pending Studies at Discharge: No Stand-Alone Forms: My [employer], Smoking Cessation Medications and DC Order Prescriptions: New Eliquis 5 mg Tablet 5 mg PO BID 30 Days Qty: 60 RF: 3 metoprolol succinate 50 mg Tablet Extended Release 24 Hr 100 mg PO BID 30 Days Qty: 60 RF: 3 Continued cyanocobalamin (vitamin B-12) [Vitamin B-12] 1,000 mcg Tablet 0 mcg PO DAILY RF: 0 Iron Supplement Otc 1 tab PO DAILY RF: 0 Discharge Orders: Discharge Order (Routine); Ordered 01/15/20 Ordered By: Flaca Wood/Other Patient Handouts: AFib, Apixaban oral tablets Admission Data Admit Date/Time: 01/13/20 02:44 Attending Provider: Flaca Arguello Admit Provider: Willie Raya Primary Care Provider: Santy Jackson Other Providers: Willie Raya ; Ankur Hylton ; Allen Guardado ; Idris Munoz ; Damion Michel ; Sampson Payne ; Jim Loya ; Susan Dutta ; Terri Giraldo ; Jose Simmons Other Interventions: Discharge Summary Assessment (RN) Last Done: 01/15/20 08:54 DC Date/Time DO NOT enter until pt leaves facility: 01/15/20 10:07
== END 2020-01-15 10:07 | disposition home or self-care (01) | DRG 309 ==
LOC: ED 23:28 → 2S 01-13 02:44

== ENCOUNTER 2020-06-16 18:03 | Inpatient (IN) ==
[2020-06-16] MEDS ORDERED: ASPIRIN CHEW 324 MG PO STA (18:05)
[2020-06-16] MEDS ORDERED: STAT IV Infusion **Titration per Protocol STA (18:16)
--- NOTE | 2020-06-16 18:27 | Emergency Department Note ---
History of Present Illness General Chief Complaint: Cardiac Assessment Stated Complaint: TACHYCARDIA Time Seen by Provider: 06/16/20 18:05 History of Present Illness Provider Complaint: + rapid heart beat, + "heart racing" and + atrial fibrillation Time: 14:00 Duration: + Constant Severity: similar to previous episodes Context: + occurred during rest Arrhythmia history: + atrial fibrillation Associated symptoms: + near-syncope, + nausea and + vomiting; no chest pain, no shortness of breath and no syncope Treatments prior to arrival: + calcium channel eden (Cardizem 20 mg IV push slow) HPI narrative: Patient is on Eliquis and has not missed any doses Home Medications Home Medications Medication Instructions Recorded Confirmed Type Iron Supplement Otc 1 tab PO DAILY 01/13/20 01/13/20 History cyanocobalamin (vitamin B-12) 0 mcg PO DAILY 01/13/20 01/13/20 History [Vitamin B-12] apixaban [Eliquis] 5 mg PO BID 30 Days #60 tab 01/14/20 Rx metoprolol succinate 100 mg PO BID 30 Days #60 tab 01/15/20 Rx Allergies Allergy/AdvReac Type Severity Reaction Status Date / Time naproxen Allergy Unknown GI UPSET Unverified 01/13/20 02:10 nickel Allergy Unknown RASH Verified 01/13/20 02:10 Past Med/Surg History Medical History (Updated 06/16/20 @ 21:06 by Eladio Izaguirre) Acute angle-closure glaucoma Atrial fibrillation with rapid ventricular response Hypomagnesemia No pertinent family history Syncope Surgical History (Updated 06/16/20 @ 18:22 by Eladio Izaguirre) No pertinent past surgical history Social History Smoking Status: Current some day smoker Hx Alcohol Use: No Hx Substance Use: Yes Preferred Language: [place]an Communication Ability: Effective Cotton Stomper Required: No Current Living Situation: Spouse Feels Safe at Home: Yes Assistive Devices: None Review of Systems A total of 10 systems reviewed and were otherwise negative Physical Exam Vital Signs: Vital Signs - 24 hr 06/16/20 18:10 06/16/20 18:16 06/16/20 18:24 Temperature 37 C Temperature Source Oral Pulse Rate 113 H 129 H 137 H Pulse Rate [Apical ] Pulse Rate from Sp O2 Sensor 76 81 Pulse Rhythm Respiratory Rate 14 16 18 Respiratory Effort / Characteristics Non-Labored Sponta neous Respiratory Depth Normal Blood Pressure 134/89 123/78 Blood Pressure [Ri ght Arm] Blood Pressure Aria n 104 93 Blood Pressure Aria n [Right Arm] Blood Pressure Pos ition Sitting Blood Pressure Pos ition [Right Arm] Pulse Oximetry 97 98 98 Oxygen Delivery Me thod Room Air Sepsis Recent Feve r Within 48 Hours No Sepsis New/Unexpla ined Change in Men taylor Status N/A Sepsis Action Take n by Nursing No Action Required 06/16/20 18:30 06/16/20 18:34 06/16/20 18:45 Temperature Temperature Source Pulse Rate 161 H 130 H 146 H Pulse Rate [Apical ] 129 H Pulse Rate from Sp O2 Sensor 80 63 Pulse Rhythm Irregular Respiratory Rate 19 18 23 Respiratory Effort / Characteristics Non-Labored Sponta neous Respiratory Depth Normal Blood Pressure 133/102 H 138/91 Blood Pressure [Ri ght Arm] 133/102 H Blood Pressure Aria n 103 114 Blood Pressure Aria n [Right Arm] 112 Blood Pressure Pos ition Blood Pressure Pos ition [Right Arm] Lying Pulse Oximetry 98 94 92 Oxygen Delivery Me thod Room Air Sepsis Recent Feve r Within 48 Hours Sepsis New/Unexpla ined Change in Men taylor Status Sepsis Action Take n by Nursing 06/16/20 19:00 06/16/20 19:01 06/16/20 19:02 Temperature Temperature Source Pulse Rate 147 H 142 H 122 H Pulse Rate [Apical ] Pulse Rate from Sp O2 Sensor 103 H 86 85 Pulse Rhythm Respiratory Rate 28 H 20 20 Respiratory Effort / Characteristics Respiratory Depth Blood Pressure 100/62 Blood Pressure [Ri ght Arm] Blood Pressure Aria n 72 Blood Pressure Aria n [Right Arm] Blood Pressure Pos ition Blood Pressure Pos ition [Right Arm] Pulse Oximetry 91 89 L 95 Oxygen Delivery Me thod Sepsis Recent Feve r Within 48 Hours Sepsis New/Unexpla ined Change in Men taylor Status Sepsis Action Take n by Nursing 06/16/20 19:15 06/16/20 19:30 06/16/20 19:53 Temperature Temperature Source Pulse Rate 110 H 120 H Pulse Rate [Apical ] 113 H Pulse Rate from Sp O2 Sensor 83 92 H Pulse Rhythm Respiratory Rate 20 17 Respiratory Effort / Characteristics Respiratory Depth Blood Pressure 117/71 112/82 Blood Pressure [Ri ght Arm] Blood Pressure Aria n 82 93 Blood Pressure Aria n [Right Arm] Blood Pressure Pos ition Blood Pressure Pos ition [Right Arm] Pulse Oximetry 98 94 Oxygen Delivery Me thod Sepsis Recent Feve r Within 48 Hours Sepsis New/Unexpla ined Change in Men taylor Status Sepsis Action Take n by Nursing 06/16/20 20:00 06/16/20 20:30 06/16/20 20:45 Temperature Temperature Source Pulse Rate 114 H 144 H 125 H Pulse Rate [Apical ] Pulse Rate from Sp O2 Sensor 84 90 81 Pulse Rhythm Respiratory Rate 19 17 19 Respiratory Effort / Characteristics Respiratory Depth Blood Pressure 113/88 104/70 Blood Pressure [Ri ght Arm] Blood Pressure Aria n 96 91 Blood Pressure Aria n [Right Arm] Blood Pressure Pos ition Blood Pressure Pos ition [Right Arm] Pulse Oximetry 94 97 96 Oxygen Delivery Me thod Room Air Sepsis Recent Feve r Within 48 Hours Sepsis New/Unexpla ined Change in Men taylor Status Sepsis Action Take n by Nursing Physical Exam: Physical Exam GENERAL: He is oriented to person, place, and time. He appears well-developed and well-nourished. He does not appear distressed. HENT: Exam performed. - Head: Normocephalic and atraumatic. - Right Ear: External ear normal. No mastoid tenderness. - Left Ear: External ear normal. No mastoid tenderness. - Mouth/Throat: The oropharynx is clear and moist. No trismus in the jaw. No dental abscesses or uvula swelling. No oropharyngeal exudate or tonsillar abscesses. EYES: Conjunctivae and EOM are normal. Pupils are equal, round, and reactive to light. Right eye exhibits no discharge. Left eye exhibits no discharge. No scleral icterus. NECK: Normal range of motion. Neck supple. No JVD present. No spinous process tenderness present. No carotid bruit present. No rigidity. No tracheal deviation and normal range of motion present. No Brudzinski's sign and no Kernig's sign noted. CV: Tachycardic rate, irregular rhythm, normal heart sounds and intact distal pulses. There is no peripheral edema. Palpable radial pulses bue. PULM/CHEST: Effort normal and breath sounds normal. No respiratory distress. No stridor. He has no wheezes. He has no rales. - Chest Wall: He exhibits no tenderness. ABD: The abdomen is soft. Bowel sounds are normal. He has no distension. No mass is present. There is no tenderness. There is no rebound, no guarding, no Kwan's sign and no tenderness at McBurney's point. Rovsig negative. MUSC/SKEL: Normal range of motion. There is no peripheral edema, tenderness or deformity. LYMPH: No cervical adenopathy. NEURO: He is alert and oriented to person, place, and time. He has normal strength. No cranial nerve deficit or sensory deficit. Coordination and gait normal. GCS eye subscore is 4. GCS verbal subscore is 5. GCS motor subscore is 6. Cerebellar tests wnl. SKIN: Skin is warm and dry. He is not diaphoretic. PSYCH: He has a normal mood and affect. Behavior is normal. Judgment and thought content normal. Course Course 174: Received a call from EMS for a 34-year-old maleWho presented to [facility] outpatient office [place] Medics stated that the patient's heart rate was anywhere from 160-190 on the parts and service manager. Blood pressure was stable. EKG was transmitted to id. EKG at 1740 done by paramedics showed atrial fibrillation with rate of 163. QRS and QTc intervals within normal limits. No ST elevation or ST depression. Order was given for the patient received 20 mg Cardizem IV push slow. 1805: The patient was evaluated in room B2. A complete history and physical exam was performed. Spoke with EMS who states the patient's heart rate improved to approximately 115 status post 20 mg Cardizem. Patient was also given 4 mg Zofran IV push by EMS. Repeat EKG done by EMS at 1750 showed atrial fibrillation with rate 110. QRS and QTc intervals are within normal limits. No ST elevation or ST depression. On arrival labs were obtained. Patient was was placed on parts and service manager. Cardiac monitoring: An order was placed for continuous cardiac monitoring. The monitor shows a rate of 115-150 with atrial fibrillation rhythm Patient will be placed on Cardizem drip. 2100: Signs stable on Cardizem drip. Labs within normal limits. Imaging within normal limits. Patient will be admitted to the [facility] hospitalist team Dr. Raya notified. Administered Medications Diltiazem HCl 125 mg/ Dextrose 125 mls @ 10 mls/hr IV .[id number] [facility]; Protocol Stop: 11/02/20 18:29 Last Titration: 06/16/20 19:10 Dose: 10 mg/hr, 10 mls/hr Documented by: [id number] Cosigned by: [id number] Titration: 06/16/20 18:45 Dose: 7.5 mg/hr, 7.5 mls/hr Documented by: [id number] Cosigned by: [id number] Admin: 06/16/20 18:33 Dose: 5 mg/hr, 5 mls/hr Documented by: [id number] Cosigned by: [id number] Discontinued Medications Aspirin (Aspirin Chew 324 Mg) 324 mg PO NOW STA Stop: 06/16/20 18:06 Last Admin: 06/16/20 18:45 Dose: 324 mg Documented by: [id number] Sodium Chloride (Nss 1000ml) 1,000 mls @ 999 mls/hr IV .Q1H1M ONE Stop: 06/16/20 20:02 Last Infusion: 06/16/20 20:11 Dose: 0 mls/hr Documented by: [id number] Admin: 06/16/20 19:10 Dose: 999 mls/hr Documented by: [id number] Lorazepam (Ativan) 1 mg in 2 mls @ 2 mls/min IV NOW STA Stop: 06/16/20 20:41 Last Admin: 06/16/20 20:49 Dose: 2 mls/min Documented by: [id number] Miscellaneous (Stat Iv Infusion Titration Per Protocol) 1 ea N/A NOW STA Stop: 06/16/20 18:17 Last Admin: 06/16/20 19:10 Dose: Not Given Documented by: [id number] Medical Decision Making Laboratory Data Result diagrams: 06/16/20 18:20 06/16/20 19:54 Lab Results 06/16/20 06/16/20 06/16/20 Range/Units 18:20 18:20 18:20 WBC 11.05 H (4.8-10.8) K/uL RBC 5.24 (4.7-6.1) M/uL Hgb 16.4 (14.0-18.0) g/dL Hct 46.4 (42-52) % MCV 88.5 (80-100) fL MCH 31.3 (25-34) pg MCHC 35.3 (32-36) g/dL RDW Std Deviation 41.2 (36.4-46.3) fL RDW Coeff of Diana 12.8 (11.5-14.5) % Plt Count 233 (130-400) K/uL MPV 10.5 H (7.4-10.4) fL Immature Gran % (Auto) 0.3 % Neut % (Auto) 85.8 % Lymph % (Auto) 8.8 % Gordon % (Auto) 4.7 % Eos % (Auto) 0.3 % Baso % (Auto) 0.1 % Neut # (Auto) 9.49 H (1.4-6.5) K/uL Lymph # (Auto) 0.97 L (1.2-3.4) K/uL Gordon # (Auto) 0.52 (0.11-0.59) K/uL Eos # (Auto) 0.03 (0-0.5) K/uL Baso # (Auto) 0.01 (0-0.2) K/uL Immature Gran # (Auto) 0.03 H (0.00-0.02) K/uL PT 11.8 (9.0-12.0) Seconds INR 1.1 (0.9-1.1) APTT 31.6 H (21.0-31.0) Seconds PTT Ratio 1.1 Sodium 142 (136-145) mmol/L Potassium (3.5-5.1) mmol/L Chloride 108 H (98-107) mmol/L Carbon Dioxide 27 (21-32) mmol/L Anion Gap 7.0 (3-11) BUN 13 (7-18) mg/dl Creatinine 1.08 (0.6-1.4) mg/dl Est Cr Clr Drug Dosing 151.6 ml/min Est GFR ( Amer) 103.2 Est GFR (Non-Af Amer) 89.1 BUN/Creatinine Ratio 12.3 (10-20) Glucose 110 H (70-99) mg/dl Calcium 9.1 (8.5-10.1) mg/dl Magnesium (1.8-2.4) mg/dl Total Bilirubin 0.7 (0.2-1) mg/dl AST (15-37) U/L ALT 38 (12-78) U/L Alkaline Phosphatase 73 (45-117) U/L Troponin I < 0.015 (0-0.045) ng/ml Total Protein 7.5 (6.4-8.2) gm/dl Albumin 3.9 (3.4-5.0) gm/dl Globulin 3.6 (2.5-4.0) gm/dl Albumin/Globulin Ratio 1.1 (0.9-2) Lipase 89 (73-393) U/L 06/16/20 Range/Units 19:54 WBC (4.8-10.8) K/uL RBC (4.7-6.1) M/uL Hgb (14.0-18.0) g/dL Hct (42-52) % MCV (80-100) fL MCH (25-34) pg MCHC (32-36) g/dL RDW Std Deviation (36.4-46.3) fL RDW Coeff of Diana (11.5-14.5) % Plt Count (130-400) K/uL MPV (7.4-10.4) fL Immature Gran % (Auto) % Neut % (Auto) % Lymph % (Auto) % Gordon % (Auto) % Eos % (Auto) % Baso % (Auto) % Neut # (Auto) (1.4-6.5) K/uL Lymph # (Auto) (1.2-3.4) K/uL Gordon # (Auto) (0.11-0.59) K/uL Eos # (Auto) (0-0.5) K/uL Baso # (Auto) (0-0.2) K/uL Immature Gran # (Auto) (0.00-0.02) K/uL PT (9.0-12.0) Seconds INR (0.9-1.1) APTT (21.0-31.0) Seconds PTT Ratio Sodium (136-145) mmol/L Potassium 4.2 (3.5-5.1) mmol/L Chloride (98-107) mmol/L Carbon Dioxide (21-32) mmol/L Anion Gap (3-11) BUN (7-18) mg/dl Creatinine (0.6-1.4) mg/dl Est Cr Clr Drug Dosing ml/min Est GFR ( Amer) Est GFR (Non-Af Amer) BUN/Creatinine Ratio (10-20) Glucose (70-99) mg/dl Calcium (8.5-10.1) mg/dl Magnesium 1.9 (1.8-2.4) mg/dl Total Bilirubin (0.2-1) mg/dl AST 20 (15-37) U/L ALT (12-78) U/L Alkaline Phosphatase (45-117) U/L Troponin I (0-0.045) ng/ml Total Protein (6.4-8.2) gm/dl Albumin (3.4-5.0) gm/dl Globulin (2.5-4.0) gm/dl Albumin/Globulin Ratio (0.9-2) Lipase (73-393) U/L Imaging Data Radiologist's Impression: XR chest 1V portable HISTORY: Atypical Chest Pain COMPARISON: Chest 01/13/2020. FINDINGS: The lungs are clear. Cardiac silhouette is normal in size. No pleural effusions. No pneumothorax. IMPRESSION: No acute process. ACT 112: Negative or not required by law. Electronically signed by: Jamison Barajas M.D. 06/16/2020 6:36 PM Dictated: 06/16/201834 Transcribed: 06/16/201834 ECG Data Indication: palpitations Rate (beats per minute): 115 Rhythm: atrial fibrillation Findings: no ST depression, no ST elevation and no prolonged QT [facility] [place] Narrative 1747: Received a call from EMS for a 34-year-old maleWho [facility] Medics stated that the patient's heart rate was anywhere from 160-190 on the parts and service manager. Blood pressure was stable. EKG was transmitted to id. EKG at 1740 done by paramedics showed atrial fibrillation with rate of 163. QRS and QTc intervals within normal limits. No ST elevation or ST depression. Order was given for the patient received 20 mg Cardizem IV push slow. 1805: The patient was evaluated in room B2. A complete history and physical exam was performed. Spoke with EMS who states the patient's heart rate improved to approximately 115 status post 20 mg Cardizem. Patient was also given 4 mg Zofran IV push by EMS. Repeat EKG done by EMS at 1750 showed atrial fibrillation with rate 110. QRS and QTc intervals are within normal limits. No ST elevation or ST depression. On arrival labs were obtained. Patient was was placed on parts and service manager. Cardiac monitoring: An order was placed for continuous cardiac monitoring. The monitor shows a rate of 115-150 with atrial fibrillation rhythm Patient will be placed on Cardizem drip. 2100: Signs stable on Cardizem drip. Labs within normal limits. Imaging within normal limits. [facility]. Impression & Plan Atrial fibrillation with rapid ventricular response Critical Care Time Critical Care Time: Yes Total Critical Care Time: 43 I have personally spent greater than 43 minutes of critical care time in the direct management of this patient. This includes bedside care, interpretation of diagnostic studies, and testing, discussion with consultants, patient, and family members, and other required patient management activities. This 43 minutes is in excess of all separately billable procedures. Discharge Plan Visit Data Chief Complaint: Cardiac Assessment Stated Complaint: TACHYCARDIA ED Provider: Eladio Izaguirre Discharge Problem: Atrial fibrillation with rapid ventricular response Patient Disposition: Admitted As Inpatient Forms Stand Alone Forms: [facility] Prescriptions Prescriptions: No Action cyanocobalamin (vitamin B-12) [Vitamin B-12] 1,000 mcg Tablet 0 mcg PO DAILY RF: 0 Iron Supplement Otc 1 tab PO DAILY RF: 0 Eliquis 5 mg Tablet 5 mg PO BID 30 Days Qty: 60 RF: 3 metoprolol succinate 50 mg Tablet Extended Release 24 Hr 100 mg PO BID 30 Days Qty: 60 RF: 3 Referrals Referrals: Santy Jackson MD [Primary Care Provider] -
[2020-06-16] MEDS ORDERED: dilTIAZem HCL 125 MG in DEXTROSE 5% 100 ML IV SCH (18:30)
--- NOTE | 2020-06-16 18:37 | XRay Report ---
XR chest 1V portable HISTORY: Atypical Chest Pain COMPARISON: Chest 01/13/2020. FINDINGS: The lungs are clear. Cardiac silhouette is normal in size. No pleural effusions. No pneumot horax. IMPRESSION: No acute process. ACT 112: Negative or not required by law. Electronically signed by: Jamison Barajas M.D. 06/16/2020 6:36 PM
[2020-06-16 18:51] LABS: INR 1.1 (0.9-1.1); Partial Thromboplastin Ratio 1.1; Partial Thromboplastin Time 31.6 Seconds (21.0-31.0); Prothrombin Time 11.8 Seconds (9.0-12.0)
[2020-06-16] MEDS ORDERED: SODIUM CHLORIDE 0.9% 1000ML 1,000 ML IV ONE (19:02)
[2020-06-16 19:06] LABS: Alanine Aminotransferase 38 U/L (12-78); Albumin Globulin Ratio 1.1 (0.9-2); Albumin Level 3.9 gm/dl (3.4-5.0); Alkaline Phosphatase 73 U/L (45-117); BUN Creatinine Ratio 12.3 (10-20); Bilirubin,Total 0.7 mg/dl (0.2-1); Blood Urea Nitrogen 13 mg/dl (7-18); Calcium 9.1 mg/dl (8.5-10.1); Carbon Dioxide 27 mmol/L (21-32); Chloride 108 mmol/L (98-107); Creatinine Clr Calc Pharmacy 151.6 ml/min; Est GFR (African American) 103.2; Est GFR (Non-African American) 89.1; Globulin 3.6 gm/dl (2.5-4.0); Glucose 110 mg/dl (70-99); Lipase 89 U/L (73-393); Sodium 142 mmol/L (136-145); Total Protein 7.5 gm/dl (6.4-8.2); Troponin I < 0.015 ng/ml (0-0.045)
[2020-06-16 20:18] LABS: Potassium 4.2 mmol/L (3.5-5.1)
[2020-06-16 20:23] LABS: Magnesium 1.9 mg/dl (1.8-2.4)
[2020-06-16] MEDS ORDERED: LORazepam 1 MG/2 ML VIAL IV STA (20:40)
[2020-06-16 20:46] LABS: Basophils # (auto) 0.01 K/uL (0-0.2); Basophils % (auto) 0.1 %; Eosinophils # (auto) 0.03 K/uL (0-0.5); Eosinophils % (auto) 0.3 %; Hematocrit (blood only) 46.4 % (42-52); Hemoglobin 16.4 g/dL (14.0-18.0); Immature Granulocytes # (auto) 0.03 K/uL (0.00-0.02); Immature Granulocytes % (auto) 0.3 %; Lymphocytes # (auto) 0.97 K/uL (1.2-3.4); Lymphocytes % (auto) 8.8 %; Mean Corpuscular Hemoglobin 31.3 pg (25-34); Mean Corpuscular Hgb Conc 35.3 g/dL (32-36); Mean Corpuscular Volume 88.5 fL (80-100); Mean Platelet Volume 10.5 fL (7.4-10.4); Monocytes # (auto) 0.52 K/uL (0.11-0.59); Monocytes % (auto) 4.7 %; Neutrophils # (auto) 9.49 K/uL (1.4-6.5); Neutrophils % (auto) 85.8 %; Platelet Count 233 K/uL (130-400); RDW Coefficient of Variation 12.8 % (11.5-14.5); RDW Standard Deviation 41.2 fL (36.4-46.3); Red Blood Count 5.24 M/uL (4.7-6.1); White Blood Count 11.05 K/uL (4.8-10.8)
[2020-06-16] MEDS ORDERED: ACETAMINOPHEN 325 MG TAB PO PRN (22:10)
[2020-06-16] MEDS ORDERED: ONDANSETRON INJ 2 MG/ML 2 ML VIAL IV PRN (22:10)
[2020-06-16] MEDS ORDERED: NITROGLYCERIN SL 0.4 MG/TAB TAB SL PRN (22:10)
[2020-06-16] MEDS: SODIUM CHLORIDE 0.9% 1000ML 1,000 ML IV SCH (22:49)
[2020-06-16] MEDS: METOPROLOL SUCC 50MG EXT REL TAB PO SCH (22:49)
[2020-06-16] MEDS: APIXABAN 5 MG TABLET PO SCH (22:49)
--- NOTE | 2020-06-16 22:52 | History and Physical Report ---
DATE OF ADMISSION: 06/16/2020 CHIEF COMPLAINT: Rapid AFib. HISTORY OF PRESENT ILLNESS: This is a 34-year-old male with past medical history significant for atrial fibrillation diagnosed in January of 2020, history of anxiety with use of medical marijuana, history of hypertension, sleep apnea on CPAP, obesity, who presents with rapid AFib. The patient says he was apparently doing fine. In the afternoon around 2:00 p.m., he woke up from the sleep. He was taking a nap and he forgot to turn on his CPAP machine. When he woke up, he had severe headache and he vomited and he was feeling palpitations. He went to his PCP's office where he was found in rapid atrial fibrillation in the 170 range. EMS was called and he received 20 of IV Cardizem. By the time he came in the ER, he was ranging from 115-150. He was started on Cardizem drip. Currently resting comfortably and hemodynamically stable. The patient says he is feeling better. Headache is gone. There is no nausea now. Denies any chest pain. No shortness of breath, no cough, no fever, no chills, no blurred vision, no earache, no runny nose, no sore throat, no dysphagia, no abdominal pain. Normal bowel and bladder movements. No rash, no swelling in the legs. Otherwise, the patient says he is active. He states he does do exercise bike almost 2 hours a day and is not feeling any palpitations at home other than today's episode. He was also evaluated by EP and plan to continue current medications. The patient is on Eliquis and currently on Toprol-XL 50 mg p.o. b.i.d. and Hyzaar for his blood pressure. ALLERGIES: NAPROXEN, NICKEL. PAST MEDICAL HISTORY: As mentioned above. MEDICATIONS: The patient is supposed to be on Eliquis 5 mg p.o. b.i.d., Toprol-XL 50 mg p.o. b.i.d., Hyzaar 50/12.5 mg half a tablet daily, vitamin B12 100 mcg p.o. daily, famotidine 20 mg p.o. a.m., ferrous sulfate 325 mg p.o. daily, garlic 100 mg p.o. q. c. FAMILY HISTORY: Significant for father has depression; maternal grandmother had diabetes, glaucoma; maternal grandfather had heart disorder, in his 40s; paternal grandfather had heart disorder, bypass in 60s; paternal grandmother has depression, diabetes, glaucoma. SOCIAL HISTORY: and lives with his family. Former smoker, quit in 2017. No alcohol use. medical marijuana. REVIEW OF SYSTEMS: As per HPI. Rest of the review of systems negative. PHYSICAL EXAMINATION: GENERAL: The patient is of moderate build, not in acute distress. VITAL SIGNS: Temperature 37, pulse in the 110-120 range, blood pressure 92/65, and oxygen 95% on room air. HEENT: No pallor, no icterus. Oral mucosa moist. NECK: Supple. CARDIOVASCULAR: S1, S2 heard. Tachycardia, irregular rhythm, no murmur, no gallop. RESPIRATORY SYSTEM: Normal AP diameter. No accessory muscle use. No wheezing, no crackles. ABDOMEN: Soft, bowel sounds present, nontender. No distention. CENTRAL NERVOUS SYSTEM: Cranial nerves II-XII grossly intact, nonfocal. EXTREMITIES: Trace pedal edema present, no erythema seen. LABORATORY DATA: WBC 11, hemoglobin 16.4, hematocrit 46.4, platelets 233. PT 11.8, INR 1.1, APTT 31.6. Sodium 142, potassium 4.2, chloride 108, bicarbonate 27, BUN 13, creatinine 1.08, serum glucose 110, calcium 9.1, magnesium 1.9, total bilirubin 0.7, AST 20, ALT 38, alkaline phosphatase 73, troponin I less than 0.015. Lipase 89. IMAGING: Chest x-ray, no acute process seen. EKG: Atrial fibrillation with rapid ventricular response at the rate of 115, no other significant change was found. ASSESSMENT AND PLAN: This is a 34-year-old male who presents with rapid atrial fibrillation. 1. Rapid atrial fibrillation. Forgot to turn on his CPAP machine today during the afternoon nap and woke with headache, vomiting and palpitations. . Currently on Cardizem drip, which he will continue. Continue his home Toprol-XL 50 mg b.i.d. The patient is on Eliquis. Echo done on 01/13/2020 showed EF of 60% to 65%, normal left atrial size. No significant valvular pathology. He had a stress echo done on 03/05/2020 which was also unremarkable. We will follow the serial enzymes. Monitor in tele floor. Keep him n.p.o. and consult cardiology in the a.m. for further recommendation and adjustment of medications. 2. Gastroesophageal reflux disease. Continue his famotidine. 3. Mild sleep apnea. Continue CPAP at bedtime. 4. Hypertension. Continue Toprol-XL and Hyzaar. We will monitor blood pressure while he is on Cardizem. 5. Obesity, needs counseling. 6. Deep venous thrombosis prophylaxis, on Eliquis. DISPOSITION: Monitor in the tele floor. Expect to discharge home and follow with his family doctor and cardiology. Level 1 full code. MTDD
[2020-06-17 05:15] LABS: Basophils # (auto) 0.02 K/uL (0-0.2); Basophils % (auto) 0.2 %; Eosinophils # (auto) 0.11 K/uL (0-0.5); Eosinophils % (auto) 1.4 %; Hematocrit (blood only) 44.9 % (42-52); Hemoglobin 15.5 g/dL (14.0-18.0); Immature Granulocytes # (auto) 0.01 K/uL (0.00-0.02); Immature Granulocytes % (auto) 0.1 %; Lymphocytes # (auto) 2.29 K/uL (1.2-3.4); Lymphocytes % (auto) 28.4 %; Mean Corpuscular Hemoglobin 31.3 pg (25-34); Mean Corpuscular Hgb Conc 34.5 g/dL (32-36); Mean Corpuscular Volume 90.7 fL (80-100); Mean Platelet Volume 9.7 fL (7.4-10.4); Monocytes # (auto) 0.65 K/uL (0.11-0.59); Monocytes % (auto) 8.1 %; Neutrophils # (auto) 4.99 K/uL (1.4-6.5); Neutrophils % (auto) 61.8 %; Platelet Count 193 K/uL (130-400); RDW Coefficient of Variation 13.1 % (11.5-14.5); RDW Standard Deviation 42.5 fL (36.4-46.3); Red Blood Count 4.95 M/uL (4.7-6.1); White Blood Count 8.07 K/uL (4.8-10.8)
[2020-06-17 05:39] LABS: BUN Creatinine Ratio 9.8 (10-20); Blood Urea Nitrogen 9 mg/dl (7-18); Calcium 8.6 mg/dl (8.5-10.1); Carbon Dioxide 30 mmol/L (21-32); Chloride 109 mmol/L (98-107); Creatinine Clr Calc Pharmacy 169.9 ml/min; Est GFR (Non-African American) 102.7; Glucose 95 mg/dl (70-99); Magnesium 1.8 mg/dl (1.8-2.4); Potassium 3.8 mmol/L (3.5-5.1); Sodium 142 mmol/L (136-145)
[2020-06-17 05:44] LABS: Troponin I < 0.015 ng/ml (0-0.045)
--- NOTE | 2020-06-17 08:19 | Cardiology Consultation ---
Date of Consultation June 17, 2020 Assessment & Plan (1) Atrial fibrillation with rapid ventricular response: (2) Anxiety: The patient had a normal stress test with normal LV function this past summer. Flecainide is usually well-tolerated in this age group and therefore I am going to start him on 50 mg twice daily. He will need to stay on telemetry for several days to monitor for proarrhythmic effects. The patient has been on continuous anticoagulation for several months. I believe it would be reasonable to cardiovert him prior to discharge. History of Present Illness Attending Physician: Flaca Arguello MD History of Present Illness This is a 34-year-old male patient with a history of paroxysmal atrial fibrillation first diagnosed earlier this year. He also has a history of sleep apnea which may be contributing to the paroxysmal atrial fibrillation. He has been using BiPAP recently. Yesterday he fell asleep in the afternoon without his CPAP. When he awoke he did not feel well. He was tachycardic and presented to the emergency department where he was found to be in atrial fibrillation with RVR. He has been continued on metoprolol and a Cardizem drip was started. His heart rates have been variable since admission. This past summer he had an exercise stress echocardiogram that was negative for ischemia with normal LV function. During my interview the patient developed a panic episode. He has a history of anxiety and actually received Ativan in the emergency department prior to his admission to the floor yesterday. Past medical history: 1. Paroxysmal atrial fibrillation on metoprolol and Eliquis 2. Obstructive sleep apnea referred to sleep medicine for the start of CPAP 3. Anxiety Allergies Allergy/AdvReac Type Severity Reaction Status Date / Time naproxen Allergy Unknown GI UPSET Unverified 06/16/20 21:28 nickel Allergy Unknown RASH Verified 06/16/20 21:28 Home Medications Home Medications Medication Instructions Recorded Confirmed Type apixaban [Eliquis] 5 mg PO BID 30 Days #60 tab 01/14/20 06/16/20 Rx cyanocobalamin (vitamin B-12) 100 mcg PO DAILY 06/16/20 06/16/20 History famotidine 20 mg PO QAM 06/16/20 06/16/20 History ferrous sulfate [Iron (ferrous 325 mg PO DAILY 06/16/20 06/16/20 History sulfate)] garlic 1,000 mg PO PC 06/16/20 06/16/20 History losartan-hydrochlorothiazide 0.5 tab PO DAILY 06/16/20 06/16/20 History metoprolol succinate 50 mg PO BID 06/16/20 06/16/20 History Patient History Medical History Acute angle-closure glaucoma Atrial fibrillation with rapid ventricular response Hypomagnesemia No pertinent family history Syncope Surgical History No pertinent past surgical history Social History Smoking Status: Former smoker Hx Alcohol Use: No Hx Substance Use: Yes Last Used Substance: Days (ago) Substance Use Type Other:: has a card. Preferred Language: Ukrainian Communication Ability: Effective Watch Assembly Instructor Required: No Beliefs That Will Affect Care: None Current Living Situation: Family Other Information That Helps Us Care for You: No Feels Safe at Home: Yes Assistive Devices: CPAP Review of Systems Review of Systems: All systems reviewed & are unremarkable except as noted in HPI & below Nothing additional to add. Physical Exam Physical Exam: General: no acute distress and stated age Head: normocephalic, no masses, lesions, tenderness or abnormalities Eyes: conjunctiva are pink and non-injected, sclera clear Neck: supple, no adenopathy, no bruits, normal jugular venous pulse, no hepatojugular reflux Chest: normal shape and normal respiratory effort Lungs: clear to auscultation and percussion Cardiac Exam: - irregular rate & rhythm, no murmurs gallops or rubs - normal S1, normal S2 Pulses: 2(+) throughout Abdomen: abdomen soft, non-tender, no abnormal masses and no hepatosplenomegaly Musculoskeletal: no gait disturbance, no joint inflammation, no deforming arthritis Extremities: no edema and no cyanosis Neuro: grossly normal exam Results & Data ([facility]) Vital Signs (Past 12 Hours) Vital Signs Temp Pulse Pulse Pulse Resp BP BP 06/17/20 07:26 36.6 C 94 H 20 99/61 L 06/17/20 03:41 36.6 C 78 19 119/73 06/17/20 03:26 70 16 06/17/20 00:38 110 H 06/16/20 23:09 77 16 06/16/20 22:10 37.1 C 98 H 119/87 06/16/20 21:31 104 H 23 114/70 06/16/20 21:13 92/65 L 06/16/20 21:00 102 H 22 06/16/20 20:45 125 H 19 06/16/20 20:30 144 H 17 104/70 Pulse Ox 06/17/20 07:26 98 06/17/20 03:41 98 06/17/20 03:26 97 06/17/20 00:38 06/16/20 23:09 98 06/16/20 22:10 97 06/16/20 21:31 97 06/16/20 21:13 06/16/20 21:00 95 06/16/20 20:45 96 06/16/20 20:30 97 Laboratory Results Laboratory Results - last 24 hr 06/16/20 06/16/20 06/16/20 18:20 18:20 18:20 WBC 11.05 H RBC 5.24 Hgb 16.4 Hct 46.4 MCV 88.5 MCH 31.3 MCHC 35.3 RDW Std Deviation 41.2 RDW Coeff of Diana 12.8 Plt Count 233 MPV 10.5 H Immature Gran % (Auto) 0.3 Neut % (Auto) 85.8 Lymph % (Auto) 8.8 [place] % (Auto) 4.7 Eos % (Auto) 0.3 Baso % (Auto) 0.1 Neut # (Auto) 9.49 H Lymph # (Auto) 0.97 L [place] # (Auto) 0.52 Eos # (Auto) 0.03 Baso # (Auto) 0.01 Immature Gran # (Auto) 0.03 H PT 11.8 INR 1.1 APTT 31.6 H PTT Ratio 1.1 Sodium 142 Potassium Chloride 108 H Carbon Dioxide 27 Anion Gap 7.0 BUN 13 Creatinine 1.08 Est Cr Clr Drug Dosing 151.6 Est GFR ( Amer) 103.2 Est GFR (Non-Af Amer) 89.1 BUN/Creatinine Ratio 12.3 Glucose 110 H Calcium 9.1 Magnesium Total Bilirubin 0.7 AST ALT 38 Alkaline Phosphatase 73 Troponin I < 0.015 Total Protein 7.5 Albumin 3.9 Globulin 3.6 Albumin/Globulin Ratio 1.1 Lipase 89 06/16/20 06/16/20 06/17/20 19:54 22:51 04:59 WBC RBC Hgb Hct MCV MCH MCHC RDW Std Deviation RDW Coeff of Diana Plt Count MPV Immature Gran % (Auto) Neut % (Auto) Lymph % (Auto) [place] % (Auto) Eos % (Auto) Baso % (Auto) Neut # (Auto) Lymph # (Auto) [place] # (Auto) Eos # (Auto) Baso # (Auto) Immature Gran # (Auto) PT INR APTT PTT Ratio Sodium 142 Potassium 4.2 3.8 Chloride 109 H Carbon Dioxide 30 Anion Gap 3.0 BUN 9 Creatinine 0.96 Est Cr Clr Drug Dosing 169.9 Est GFR ( Amer) 119.0 Est GFR (Non-Af Amer) 102.7 BUN/Creatinine Ratio 9.8 L Glucose 95 Calcium 8.6 Magnesium 1.9 1.8 Total Bilirubin AST 20 ALT Alkaline Phosphatase Troponin I < 0.015 < 0.015 Total Protein Albumin Globulin Albumin/Globulin Ratio Lipase 06/17/20 04:59 WBC 8.07 RBC 4.95 Hgb 15.5 Hct 44.9 MCV 90.7 MCH 31.3 MCHC 34.5 RDW Std Deviation 42.5 RDW Coeff of Diana 13.1 Plt Count 193 MPV 9.7 Immature Gran % (Auto) 0.1 Neut % (Auto) 61.8 Lymph % (Auto) 28.4 [place] % (Auto) 8.1 Eos % (Auto) 1.4 Baso % (Auto) 0.2 Neut # (Auto) 4.99 Lymph # (Auto) 2.29 [place] # (Auto) 0.65 H Eos # (Auto) 0.11 Baso # (Auto) 0.02 Immature Gran # (Auto) 0.01 PT INR APTT PTT Ratio Sodium Potassium Chloride Carbon Dioxide Anion Gap BUN Creatinine Est Cr Clr Drug Dosing Est GFR ( Amer) Est GFR (Non-Af Amer) BUN/Creatinine Ratio Glucose Calcium Magnesium Total Bilirubin AST ALT Alkaline Phosphatase Troponin I Total Protein Albumin Globulin Albumin/Globulin Ratio Lipase Medications Administered Current Inpatient Medications Acetaminophen (Acetaminophen 325 Mg Tab) 650 mg PO Q4H PRN PRN Reason: Pain or Fever Stop: 07/16/20 22:09 Apixaban (Apixaban 5 Mg Tablet) 5 mg PO BID JAMIE Stop: 07/16/20 22:09 Last Admin: 10/04/20 08:32 Dose: 5 mg Documented by: Cyanocobalamin (Cyanocobalamin (Vitamin B-12) 100 Mcg Tablet) 100 mcg PO DAILY [facility] Stop: 07/17/20 08:59 Last Admin: 06/17/20 08:34 Dose: 100 mcg Documented by: Famotidine (Famotidine 20 Mg Tab) 20 mg PO QAM JAMIE Stop: 07/17/20 08:59 Last Admin: 06/17/20 08:33 Dose: 20 mg Documented by: Ferrous Sulfate (Ferrous Sulfate 325 Mg Tab) 325 mg PO DAILY JAMIE Stop: 07/17/20 08:59 Last Admin: 06/17/20 08:32 Dose: 325 mg Documented by: Flecainide Acetate (Flecainide Acetate 100 Mg Tablet) 50 mg PO Q12 [facility] Stop: 07/17/20 09:24 HCTZ/Losartan Potassium (Losartan/Hctz 50/12.5mg Tab) 0.5 tab PO DAILY [facility] Stop: 07/17/20 08:59 Last Admin: 06/17/20 08:33 Dose: 0.5 tab Documented by: Diltiazem HCl 125 mg/ Dextrose 125 mls @ 5 mls/hr IV .Q24H [facility]; Protocol Stop: 07/16/20 18:29 Last Titration: 06/17/20 03:00 Dose: 5 mg/hr, 5 mls/hr Documented by: Sodium Chloride (Nss 1000ml) 1,000 mls @ 80 mls/hr IV .[id number] [facility] Stop: 07/16/20 22:09 Last Admin: 06/16/20 22:49 Dose: 80 mls/hr Documented by: Lorazepam (Ativan) 1 mg in 2 mls @ 0.5 mls/min IV UD PRN PRN Reason: Anxiety Stop: 07/17/20 09:17 Metoprolol Succinate (Metoprolol Succ 50mg Ext Rel Tab) 50 mg PO BID [facility] Stop: 07/16/20 22:09 Last Admin: 06/17/20 08:33 Dose: 50 mg Documented by: Nitroglycerin (Nitroglycerin Sl 0.4 Mg/Tab Tab) 0.4 mg SL UD PRN PRN Reason: Chest Pain Stop: 07/16/20 22:09
[2020-06-17] MEDS: APIXABAN 5 MG TABLET PO SCH ×2 (08:32→21:12)
[2020-06-17] MEDS: FERROUS SULFATE 325 MG TAB PO SCH (08:32)
[2020-06-17] MEDS: FAMOTIDINE 20 MG TAB PO SCH (08:33)
[2020-06-17] MEDS: LOSARTAN/HCTZ 50/12.5MG TAB PO SCH (08:33)
[2020-06-17] MEDS: METOPROLOL SUCC 50MG EXT REL TAB PO SCH ×2 (08:33→21:12)
[2020-06-17] MEDS: CYANOCOBALAMIN (VITAMIN B-12) 100 MCG TABLET PO SCH (08:34)
[2020-06-17] MEDS ORDERED: LORazepam 2 MG/4 ML VIAL ONE (09:18)
[2020-06-17] MEDS ORDERED: LORazepam 1 MG/2 ML VIAL IV PRN (09:18)
[2020-06-17] MEDS: FLECAINIDE ACETATE 100 MG TABLET PO SCH ×2 (09:41→21:13)
--- NOTE | 2020-06-17 09:48 | Electrocardiogram Report ---
Test Reason : Blood Pressure : / mmHG Vent. Rate : 115 BPM Atrial Rate : 136 BPM P-R Int : 000 ms QRS Dur : 108 ms QT Int : 338 ms P-R-T Axes : 000 033 038 degrees QTc Int : 467 ms Atrial fibrillation with rapid ventricular response with premature ventricular or aberrantly conducte d complexes Abnormal ECG When compared with ECG of 15-JAN-2020 06:37, No significant change was found Confirmed by Abdirahman Renee ([id number]) on 06/17/2020 9:48:28 AM Referred By: REFERRED SELF Confirmed By:Navdeep Renee
--- NOTE | 2020-06-17 09:55 | Electrocardiogram Report ---
Test Reason : Blood Pressure : / mmHG Vent. Rate : 111 BPM Atrial Rate : 092 BPM P-R Int : 000 ms QRS Dur : 108 ms QT Int : 300 ms P-R-T Axes : 000 082 071 degrees QTc Int : 408 ms Atrial fibrillation with rapid ventricular response with premature ventricular or aberrantly conducte d complexes Abnormal ECG When compared with ECG of 16-JUN-2020 18:10, (unconfirmed) No significant change was found Confirmed by Abdirahman Renee ([id number]) on 06/17/2020 9:55:05 AM Referred By: REFERRED SELF Confirmed By:Navdeep Renee
[2020-06-17] MEDS: MAGNESIUM CHLORIDE 64MG DELAYED REL TAB PO SCH ×2 (10:23→21:13)
[2020-06-17] MEDS: SODIUM CHLORIDE 0.9% 1000ML 1,000 ML IV SCH (10:25)
--- NOTE | 2020-06-17 17:55 | Hospitalist Progress Note ---
Date of Service June 17, 2020 Assessment & Plan (1) Atrial fibrillation with rapid ventricular response: started on Flecinide appreciate input from Cardiology converted to sinus rhythm today monitor in tele to assess for any arrythmia , check EKG in am to r/o qtc prolongation on Eliquis for anticoagulation hx of LOKESH : cont CPAP Admission and Anticipated Discharge Date Admission Date: June 16, 2020 Subjective no complain of chest pain , SOB , palpitation today converted to sinus rhythm , rate controlled offeres no complain Physical Exam Constitutional: WD/WN, vitals as above Eyes: PERRL, conjunctivae normal, anicteric sclerae ENMT: external ear and nose normal, oropharynx normal Neck: trachea midline, no thyromegaly Respiratory: normal respiratory effort, lungs clear to auscultation Cardiovascular: RRR, no murmur, no edema Gastrointestinal (Abdomen): normal bowel sounds, soft, nontender, no hepatosplenomegaly Musculoskeletal: no cyanosis or clubbing, extremities motor strength 5/5 Skin: no rashes, warm and dry Neurologic: PERRL, EOMI, accommodation nl, no face palsy, no dysarthria Psychiatric: A+Ox3, euthymic affect Results & Data Results & Data ([facility]) Vital Signs (Past 12 Hours) Vital Signs Temp Pulse Resp BP Pulse Ox 06/17/20 15:22 37.0 C 83 18 130/96 98 06/17/20 12:31 88 16 127/84 96 06/17/20 07:26 36.6 C 94 H 20 99/61 L 98
[2020-06-18] MEDS: FERROUS SULFATE 325 MG TAB PO SCH (08:47)
[2020-06-18] MEDS: CYANOCOBALAMIN (VITAMIN B-12) 100 MCG TABLET PO SCH (08:48)
[2020-06-18] MEDS: MAGNESIUM CHLORIDE 64MG DELAYED REL TAB PO SCH ×2 (08:48→21:14)
[2020-06-18] MEDS: APIXABAN 5 MG TABLET PO SCH ×2 (08:48→21:14)
[2020-06-18] MEDS: FLECAINIDE ACETATE 100 MG TABLET PO SCH ×2 (08:48→21:14)
[2020-06-18] MEDS: LOSARTAN/HCTZ 50/12.5MG TAB PO SCH (08:48)
[2020-06-18] MEDS: METOPROLOL SUCC 50MG EXT REL TAB PO SCH ×2 (08:48→21:14)
[2020-06-18] MEDS: FAMOTIDINE 20 MG TAB PO SCH (08:48)
--- NOTE | 2020-06-18 09:10 | Cardiology Progress Note ---
Date of Service June 18, 2020 Assessment & Plan (1) Atrial fibrillation with rapid ventricular response: (2) Anxiety: Patient is doing well and maintaining sinus rhythm. He is tolerating the flecainide. If he continues to do well I think by tomorrow morning we can discharge him to outpatient follow-up. Admission and Anticipated Discharge Date Admission Date: June 16, 2020 Subjective Patient had an uneventful night. He converted to normal sinus rhythm late yesterday afternoon and has maintained sinus rhythm throughout the night. Review of Systems Review of Systems: All systems reviewed & are unremarkable except as noted in HPI & below Nothing additional to add. Physical Exam Physical Exam: General: no acute distress and stated age Head: normocephalic, no masses, lesions, tenderness or abnormalities Eyes: conjunctiva are pink and non-injected, sclera clear Neck: supple, no adenopathy, no bruits, normal jugular venous pulse, no hepatojugular reflux Chest: normal shape and normal respiratory effort Lungs: clear to auscultation and percussion Cardiac Exam: - regular rate & rhythm, no murmurs gallops or rubs - normal S1, normal S2 Pulses: 2(+) throughout Abdomen: abdomen soft, non-tender, no abnormal masses and no hepatosplenomegaly Musculoskeletal: no gait disturbance, no joint inflammation, no deforming arthritis Extremities: no edema and no cyanosis Neuro: grossly normal exam Results & Data ([facility]) Vital Signs (Past 12 Hours) Vital Signs Temp Pulse Pulse Resp BP BP Pulse Ox 06/18/20 06:26 36.9 C 57 L 18 122/68 99 06/18/20 03:10 88 20 97 06/18/20 02:58 36.7 C 57 L 17 112/55 L 99 06/18/20 00:30 89 06/18/20 00:05 77 24 97 06/17/20 23:20 36.9 C 56 L 17 123/73 100 Medications Administered Current Inpatient Medications Acetaminophen (Acetaminophen 325 Mg Tab) 650 mg PO Q4H PRN PRN Reason: Pain or Fever Stop: 07/16/20 22:09 Apixaban (Apixaban 5 Mg Tablet) 5 mg PO BID JAMIE Stop: 07/16/20 22:09 Last Admin: 06/18/20 08:48 Dose: 5 mg Documented by: Cyanocobalamin (Cyanocobalamin (Vitamin B-12) 100 Mcg Tablet) 100 mcg PO DAILY [facility] Stop: 07/17/20 08:59 Last Admin: 06/18/20 08:48 Dose: 100 mcg Documented by: Famotidine (Famotidine 20 Mg Tab) 20 mg PO QAM JAMIE Stop: 07/17/20 08:59 Last Admin: 06/18/20 08:48 Dose: 20 mg Documented by: Ferrous Sulfate (Ferrous Sulfate 325 Mg Tab) 325 mg PO DAILY JAMIE Stop: 07/17/20 08:59 Last Admin: 06/18/20 08:47 Dose: 325 mg Documented by: Flecainide Acetate (Flecainide Acetate 100 Mg Tablet) 50 mg PO Q12 [facility] Stop: 07/17/20 09:24 Last Admin: 06/18/20 08:48 Dose: 50 mg Documented by: HCTZ/Losartan Potassium (Losartan/Hctz 50/12.5mg Tab) 0.5 tab PO DAILY [facility] Stop: 07/17/20 08:59 Last Admin: 06/18/20 08:48 Dose: 0.5 tab Documented by: Diltiazem HCl 125 mg/ Dextrose 125 mls @ 5 mls/hr IV .Q24H [facility]; Protocol Stop: 07/16/20 18:29 Last Titration: 06/17/20 18:13 Dose: Infused Documented by: Lorazepam (Ativan) 1 mg in 2 mls @ 0.5 mls/min IV UD PRN PRN Reason: Anxiety Stop: 07/17/20 09:17 Magnesium Chloride (Magnesium Chloride 64mg Delayed Rel Tab) 64 mg PO BID [facility] Stop: 07/17/20 09:44 Last Admin: 06/18/20 08:48 Dose: 64 mg Documented by: Metoprolol Succinate (Metoprolol Succ 50mg Ext Rel Tab) 50 mg PO BID [facility] Stop: 07/16/20 22:09 Last Admin: 06/18/20 08:48 Dose: 50 mg Documented by: Nitroglycerin (Nitroglycerin Sl 0.4 Mg/Tab Tab) 0.4 mg SL UD PRN PRN Reason: Chest Pain Stop: 07/16/20 22:09
--- NOTE | 2020-06-18 16:44 | Electrocardiogram Report ---
Test Reason : Blood Pressure : / mmHG Vent. Rate : 131 BPM Atrial Rate : 174 BPM P-R Int : 000 ms QRS Dur : 102 ms QT Int : 312 ms P-R-T Axes : 000 034 045 degrees QTc Int : 460 ms Atrial fibrillation with rapid ventricular response Abnormal ECG When compared with ECG of 17-JUN-2020 06:47, No significant change was found Confirmed by Abdirahman Renee ([id number]) on 06/18/2020 4:43:56 PM Referred By: REFERRED SELF Confirmed By:Navdeep Renee
--- NOTE | 2020-06-18 16:47 | Electrocardiogram Report ---
Test Reason : Blood Pressure : / mmHG Vent. Rate : 075 BPM Atrial Rate : 075 BPM P-R Int : 116 ms QRS Dur : 106 ms QT Int : 372 ms P-R-T Axes : 044 030 022 degrees QTc Int : 415 ms Poor data quality, interpretation may be adversely affected Normal sinus rhythm Normal ECG When compared with ECG of 17-JUN-2020 11:05, (unconfirmed) Sinus rhythm has replaced Atrial fibrillation Vent. rate has decreased BY 56 BPM Confirmed by Abdirahman Renee ([id number]) on 06/18/2020 4:46:59 PM Referred By: REFERRED SELF Confirmed By:Navdeep Renee
--- NOTE | 2020-06-18 17:07 | Electrocardiogram Report ---
Test Reason : Blood Pressure : / mmHG Vent. Rate : 061 BPM Atrial Rate : 061 BPM P-R Int : 114 ms QRS Dur : 120 ms QT Int : 394 ms P-R-T Axes : 051 052 042 degrees QTc Int : 396 ms Normal sinus rhythm When compared with ECG of 17-JUN-2020 15:14, (unconfirmed) No significant change was found Confirmed by Abdirahman Renee ([id number]) on 06/18/2020 5:07:08 PM Referred By: REFERRED SELF Confirmed By:Nvadeep Renee
--- NOTE | 2020-06-18 17:24 | Hospitalist Progress Note ---
Date of Service June 18, 2020 Assessment & Plan (1) Atrial fibrillation with rapid ventricular response: Remains in normal sinus rhythm with rate controlled, Continue flecainide appreciate input from Cardiology Possible discharge home tomorrow if no evidence of arrhythmia, normal EKG hakeem rrow a.m. on Eliquis for anticoagulation hx of LOKESH : cont CPAP Admission and Anticipated Discharge Date Admission Date: June 16, 2020 Subjective Remains in normal sinus rhythm, Offers no complaint, no shortness of breath no dizzy spells no lightheadedness Physical Exam Constitutional: WD/WN, vitals as above Eyes: PERRL, conjunctivae normal, anicteric sclerae ENMT: external ear and nose normal, oropharynx normal Neck: trachea midline, no thyromegaly Respiratory: normal respiratory effort, lungs clear to auscultation Cardiovascular: RRR, no murmur, no edema Gastrointestinal (Abdomen): normal bowel sounds, soft, nontender, no hepatosplenomegaly Musculoskeletal: no cyanosis or clubbing, extremities motor strength 5/5 Skin: no rashes, warm and dry Neurologic: PERRL, EOMI, accommodation nl, no face palsy, no dysarthria Psychiatric: A+Ox3, euthymic affect Results & Data Results & Data ([facility]) Vital Signs (Past 12 Hours) Vital Signs Temp Pulse Resp BP BP Pulse Ox 06/18/20 15:31 36.9 C 82 20 140/86 98 06/18/20 11:29 37.2 C 82 20 143/86 H 99 06/18/20 06:26 36.9 C 57 L 18 122/68 99
[2020-06-19] MEDS: METOPROLOL SUCC 50MG EXT REL TAB PO SCH (09:10)
[2020-06-19] MEDS: MAGNESIUM CHLORIDE 64MG DELAYED REL TAB PO SCH (09:10)
[2020-06-19] MEDS: CYANOCOBALAMIN (VITAMIN B-12) 100 MCG TABLET PO SCH (09:11)
[2020-06-19] MEDS: APIXABAN 5 MG TABLET PO SCH (09:11)
[2020-06-19] MEDS: LOSARTAN/HCTZ 50/12.5MG TAB PO SCH (09:11)
[2020-06-19] MEDS: FERROUS SULFATE 325 MG TAB PO SCH (09:12)
[2020-06-19] MEDS: FAMOTIDINE 20 MG TAB PO SCH (09:12)
[2020-06-19] MEDS: FLECAINIDE ACETATE 100 MG TABLET PO SCH (09:12)
--- NOTE | 2020-06-19 09:15 | Cardiology Progress Note ---
Date of Service June 19, 2020 Assessment & Plan (1) Atrial fibrillation with rapid ventricular response: (2) Anxiety: The patient is okay for discharge today on flecainide, metoprolol and Eliquis. I will arrange follow-up through our clinic. Admission and Anticipated Discharge Date Admission Date: June 16, 2020 Subjective The patient had an uneventful night and no new cardiac symptoms. Review of Systems Review of Systems: All systems reviewed & are unremarkable except as noted in HPI & below Nothing additional to add. Physical Exam Physical Exam: General: no acute distress and stated age Head: normocephalic, no masses, lesions, tenderness or abnormalities Eyes: conjunctiva are pink and non-injected, sclera clear Neck: supple, no adenopathy, no bruits, normal jugular venous pulse, no hepatojugular reflux Chest: normal shape and normal respiratory effort Lungs: clear to auscultation and percussion Cardiac Exam: - regular rate & rhythm, no murmurs gallops or rubs - normal S1, normal S2 Pulses: 2(+) throughout Abdomen: abdomen soft, non-tender, no abnormal masses and no hepatosplenomegaly Musculoskeletal: no gait disturbance, no joint inflammation, no deforming arthritis Extremities: no edema and no cyanosis Neuro: grossly normal exam Results & Data ([facility]) Vital Signs (Past 12 Hours) Vital Signs Temp Pulse Pulse Resp BP Pulse Ox 06/19/20 06:52 36.5 C 67 17 143/82 H 99 06/19/20 04:02 16 98 06/19/20 03:30 36.4 C L 57 L 17 109/75 99 06/19/20 00:00 67 06/18/20 23:35 64 14 98 06/18/20 23:16 36.8 C 67 17 116/67 98 Diagnostic Findings EKG reveals a normal sinus rhythm with an appropriate QTC Medications Administered Current Inpatient Medications Acetaminophen (Acetaminophen 325 Mg Tab) 650 mg PO Q4H PRN PRN Reason: Pain or Fever Stop: 07/16/20 22:09 Apixaban (Apixaban 5 Mg Tablet) 5 mg PO BID [facility] Stop: 07/16/20 22:09 Last Admin: 06/19/20 09:11 Dose: 5 mg Documented by: Cyanocobalamin (Cyanocobalamin (Vitamin B-12) 100 Mcg Tablet) 100 mcg PO DAILY [facility] Stop: 07/17/20 08:59 Last Admin: 06/19/20 09:11 Dose: 100 mcg Documented by: Famotidine (Famotidine 20 Mg Tab) 20 mg PO QAM [facility] Stop: 07/17/20 08:59 Last Admin: 06/19/20 09:12 Dose: 20 mg Documented by: Ferrous Sulfate (Ferrous Sulfate 325 Mg Tab) 325 mg PO DAILY [facility] Stop: 07/17/20 08:59 Last Admin: 06/19/20 09:12 Dose: 325 mg Documented by: Flecainide Acetate (Flecainide Acetate 100 Mg Tablet) 50 mg PO Q12 [facility] Stop: 07/17/20 09:24 Last Admin: 06/19/20 09:12 Dose: 50 mg Documented by: HCTZ/Losartan Potassium (Losartan/Hctz 50/12.5mg Tab) 0.5 tab PO DAILY [facility] Stop: 07/17/20 08:59 Last Admin: 06/19/20 09:11 Dose: 0.5 tab Documented by: Magnesium Chloride (Magnesium Chloride 64mg Delayed Rel Tab) 64 mg PO BID [facility] Stop: 07/17/20 09:44 Last Admin: 06/19/20 09:10 Dose: 64 mg Documented by: Metoprolol Succinate (Metoprolol Succ 50mg Ext Rel Tab) 50 mg PO BID [facility] Stop: 07/16/20 22:09 Last Admin: 06/19/20 09:10 Dose: 50 mg Documented by: Nitroglycerin (Nitroglycerin Sl 0.4 Mg/Tab Tab) 0.4 mg SL UD PRN PRN Reason: Chest Pain Stop: 07/16/20 22:09
--- NOTE | 2020-06-19 12:12 | Discharge Summary ---
Date of Service June 19, 2020 Admission HPI Per Admitting Provider DICTATED BY: Willie Raya MD DATE OF ADMISSION: 06/16/2020 CHIEF COMPLAINT: Rapid AFib. HISTORY OF PRESENT ILLNESS: This is a 34-year-old male with past medical history significant for atrial fibrillation diagnosed in January of 2020, history of anxiety with use of medical marijuana, history of hypertension, sleep apnea on CPAP, obesity, who presents with rapid AFib. The patient says he was apparently doing fine. In the afternoon around 2:00 p.m., he woke up from the sleep. He was taking a nap and he forgot to turn on his CPAP machine. When he woke up, he had severe headache and he vomited and he was feeling palpitations. He went to his PCP's office where he was found in rapid atrial fibrillation in the 170 range. EMS was called and he received 20 of IV Cardizem. By the time he came in the ER, he was ranging from 115-150. He was started on Cardizem drip. Currently resting comfortably and hemodynamically stable. The patient says he is feeling better. Headache is gone. There is no nausea now. Denies any chest pain. No shortness of breath, no cough, no fever, no chills, no blurred vision, no earache, no runny nose, no sore throat, no dysphagia, no abdominal pain. Normal bowel and bladder movements. No rash, no swelling in the legs. Otherwise, the patient says he is active. He states he does do exercise bike almost 2 hours a day and is not feeling any palpitations at home other than today's episode. He was also evaluated by EP and plan to continue current medications. The patient is on Eliquis and currently on Toprol-XL 50 mg p.o. b.i.d. and Hyzaar for his blood pressure. Principal Diagnosis Rapid A. fib Obstructive sleep apnea on CPAP Discharge Exam Constitutional WD/WN, vitals as above Eyes PERRL, conjunctivae normal, anicteric sclerae ENMT external ear and nose normal, oropharynx normal Neck trachea midline, no thyromegaly Respiratory normal respiratory effort, lungs clear to auscultation Cardiovascular RRR, no murmur, no edema Gastrointestinal (Abdomen) normal bowel sounds, soft, nontender, no hepatosplenomegaly Musculoskeletal no cyanosis or clubbing, extremities motor strength 5/5 Skin no rashes, warm and dry Neurologic PERRL, EOMI, accommodation nl, no face palsy, no dysarthria Psychiatric A+Ox3, euthymic affect Discharge Data Allergies Allergy/AdvReac Type Severity Reaction Status Date / Time naproxen Allergy Unknown GI UPSET Unverified 06/16/20 21:28 nickel Allergy Unknown RASH Verified 06/16/20 21:28 Consultations 06/16/20 20:51 ED Decision to Admit Stat 06/17/20 08:00 Consult Cardiology Routine Hospital Course (1) Atrial fibrillation with rapid ventricular response: Remains in normal sinus rhythm with rate controlled, Continue flecainide appreciate input from Cardiology pt has remains in normal sinus /heart rate well controlled seen by Cardiology stable to be discharged home today with PO Flecainide 50 mg BID , Metoprolol 50 mg BID on Eliquis for anticoagulation out pt follow up with cardiology as per schedule hx of LOKESH : cont CPAP Stable to be discharged home today Total Time Total Time Spent Total Time Spent (In Minutes): 30 mins Discharge Plan Discharge Items Patient Disposition: Home - Self-Care Reason For Visit: RAPID A FIB Discharge Diagnosis: Rapid A. fib Obstructive sleep apnea on CPAP Activity: Resume your previous activity Non-emergency contact: Primary Care Provider Call non-emergency contact if: you have any medication questions Follow-up/Referrals: Sampson Payne DO [Special Event Assistant] - (DR MARIN OFFICE WILL CALL YOU WITH A FOLLOW UP APT DAY AND TIME) Santy Jackson MD [Primary Care Provider] - 06/25/20 11:20 am (Date & Time 06/25/2020 11:20 AM Provider Santy Jackson MD Department Family [facility] ) Diet: Heart Healthy Addtl Attending Provider Instructions: Follow-up with cardiology as per scheduled Pending Studies at Discharge: No Stand-Alone Forms: My Recombine, Smoking Cessation Medications and DC Order Prescriptions: New flecainide 100 mg Tablet 50 mg PO Q12 Qty: 30 RF: 0 Continued famotidine 20 mg Tablet 20 mg PO QAM RF: 0 cyanocobalamin (vitamin B-12) 100 mcg Tablet 100 mcg PO DAILY RF: 0 ferrous sulfate [Iron (ferrous sulfate)] 325 mg (65 mg iron) Tablet 325 mg PO DAILY RF: 0 metoprolol succinate 50 mg tablet extended release 24 hr 50 mg PO BID RF: 0 garlic Tablet 1,000 mg PO PC RF: 0 losartan-hydrochlorothiazide 50-12.5 mg tablet 0.5 tab PO DAILY RF: 0 Eliquis 5 mg Tablet 5 mg PO BID 30 Days Qty: 60 RF: 3 Discharge Orders: Discharge Order (Routine); Ordered 06/19/20 Ordered By: Flaca Arguello Admission Data Admit Date/Time: 06/16/20 21:23 Attending Provider: Flaca Arguello Admit Provider: Willie Raya Primary Care Provider: Santy Jackson Other Providers: Willie Raya ; Ankur Hylton ; Allen Guardado ; Idris Munoz ; Damion Michel ; Smapson Payne ; Jim Loya ; Susan Dutta ; Terri Giraldo ; Jose Simmons Other Interventions: Discharge Summary Assessment (RN) Last Done: 06/19/20 10:45
--- NOTE | 2020-06-19 17:25 | Electrocardiogram Report ---
Test Reason : Blood Pressure : / mmHG Vent. Rate : 075 BPM Atrial Rate : 075 BPM P-R Int : 120 ms QRS Dur : 118 ms QT Int : 380 ms P-R-T Axes : 054 034 034 degrees QTc Int : 424 ms Normal sinus rhythm When compared with ECG of 18-JUN-2020 07:01, No significant change was found Confirmed by Abdirahman Renee ([id number]) on 06/19/2020 5:25:40 PM Referred By: REFERRED SELF Confirmed By:Navdeep Renee
== END 2020-06-19 11:25 | disposition home or self-care (01) | DRG 310 ==
LOC: ED 18:03 → SUATTDRO 21:23 → 2E 21:23
DX: I48.0 Paroxysmal atrial fibrillation; Z79.899 Other long term (current) drug therapy; Z81.8 Family history of other mental and behavioral disorders; E66.9 Obesity, unspecified; Z87.891 Personal history of nicotine dependence; G47.33 Obstructive sleep apnea (adult) (pediatric); Z88.6 Allergy status to analgesic agent; Z91.048 Other nonmedicinal substance allergy status; Z51.81 Encounter for therapeutic drug level monitoring; K21.9 Gastro-esophageal reflux disease without esophagitis; I10 Essential (primary) hypertension; F41.9 Anxiety disorder, unspecified; Z68.34 Body mass index [BMI] 34.0-34.9, adult; Z79.01 Long term (current) use of anticoagulants